=== PATIENT | male | born 1965 | race African-American/Black ===

== ENCOUNTER 2018-08-06 16:16 | Emergency (ER) | payer BC, OTHER ==
--- NOTE | 2018-08-06 17:14 | ER ---
Nurse's Notes [facility] Name: Garrison Wilder Age: 53 yrs Sex: Male : 1965 Arrival Date: 08/06/2018 Time: 16:18 Bed 19 Private MD: Diagnosis: Sciatica, right side;Mononeuropathy, unspecified Presentation: 08/06 16:26 Presenting complaint: Patient states: Pain to right side of body for 1 week. Denies aj numbness. Transition of care: patient was not received from another setting of care. Onset of symptoms was July 31, 2018. Risk Assessment: Do you want to hurt yourself or someone else? Patient reports no desire to harm self or others. Initial Sepsis Screen: Does the patient meet any 2 criteria? No. Patient's initial sepsis screen is negative. Does the patient have a suspected source of infection? No. Patient's initial sepsis screen is negative. Care prior to arrival: None. 16:26 Method Of Arrival: Ambulatory 16:26 Acuity: TRACY 3 aj Triage Assessment: 16:27 General: Appears in no apparent distress. comfortable, Behavior is calm, cooperative, aj appropriate for age. Pain: Complains of pain in right trapezius, right scapular area, right arm and right leg. Neuro: Level of Consciousness is awake, alert, obeys commands, Oriented to person, place, time, situation, Appropriate for age. Respiratory: Airway is patent Respiratory effort is even, unlabored, Respiratory pattern is regular, symmetrical. Derm: Skin is intact, is healthy with good turgor, Skin is pink, warm \T\ dry. normal. Musculoskeletal: Reports pain in right arm and right leg. Historical: - Allergies: 16:27 No Known Allergies; aj - Home Meds: 16:27 None [Active]; aj - PMHx: 16:27 None; aj - PSHx: 16:27 Appendectomy; Cholecystectomy; aj - Immunization history:: Adult Immunizations up to date. - Social history:: Smoking status: Patient/guardian denies using tobacco, Patient uses alcohol, on a daily basis. - Ebola Screening: : Patient negative for fever greater than or equal to 101.5 degrees Fahrenheit, and additional compatible Ebola Virus Disease symptoms Patient denies exposure to infectious person Patient denies travel to an Ebola-affected area in the 21 days before illness onset No symptoms or risks identified at this time. Screenin:33 Abuse screen: Denies threats or abuse. Denies injuries from another. Nutritional bp screening: No deficits noted. Tuberculosis screening: No symptoms or risk factors identified. Fall Risk None identified. Assessment: 16:33 General: SEE TRIAGE NOTE. bp 17:24 Reassessment: PT D/C HOME AMBULATORY WITH FAMILY, DX WITH SCIATICA. bp Vital Signs: 16:27 BP 141 / 91; Pulse 92; Resp 19; Temp 98.8; Pulse Ox 97% on R/A; Weight 115.67 kg; aj Height 5 ft. 10 in. (177.80 cm); 17:25 BP 151 / 89; Pulse 89; Resp 18; Temp 98.8; Pulse Ox 97% ; bp 16:27 Body Mass Index 36.59 (115.67 kg, 177.80 cm) aj ED Course: 16:18 Patient arrived in ED. as 16:27 Triage completed. aj 16:27 Arm band placed on right wrist. Patient placed in an exam room. aj 16:31 Troy León MD is Attending Physician. 16:32 Josue Mayo, NUZHAT is Primary Nurse. bp 16:33 Patient has correct armband on for positive identification. Bed in low position. Call bp light in reach. Side rails up X2. 17:12 Jean-Claude Mathew MD is Referral Physician. gs 17:25 No provider procedures requiring assistance completed. Patient did not have IV access bp during this emergency room visit. Administered Medications: No medications were administered Outcome: 17:13 Discharge ordered by . 17:25 Discharged to home ambulatory, with family. bp 17:25 Condition: stable 17:25 Discharge instructions given to patient, Instructed on discharge instructions, follow up and referral plans. medication usage, Demonstrated understanding of instructions, follow-up care, medications, Prescriptions given X 2. 17:26 Patient left the ED. bp Signatures: Milly Gongora, RN RN Tracy Perry Gregory, MD MD gs Peltier, Brian, NUZHAT RN bp
--- NOTE | 2018-08-06 17:14 | EDPHYS ---
Physician Documentation [facility] Name: Garrison Wilder Age: 53 yrs Sex: Male : 1965 Arrival Date: 08/06/2018 Time: 16:18 Bed 19 Private MD: ED Physician Troy León HPI: 08/06 17:01 This 53 yrs old Black Male presents to ER via Ambulatory with complaints of Pain All gs Over - Right Side. 17:01 The patient presents with pain, that is acute. The complaints affect the right hip. gs Onset: The symptoms/episode began/occurred 1 week(s) ago, intermittent. Modifying factors: The symptoms are alleviated by nothing. the symptoms are aggravated by nothing. Associated signs and symptoms: Pertinent negatives calf tenderness, fever, swelling. Severity of symptoms: At their worst the symptoms were moderate, in the emergency department the symptoms have resolved. The patient has not experienced similar symptoms in the past. Historical: - Allergies: 16:27 No Known Allergies; aj - Home Meds: 16:27 None [Active]; aj - PMHx: 16:27 None; aj - PSHx: 16:27 Appendectomy; Cholecystectomy; aj - Immunization history:: Adult Immunizations up to date. - Social history:: Smoking status: Patient/guardian denies using tobacco, Patient uses alcohol, on a daily basis. - Ebola Screening: : Patient negative for fever greater than or equal to 101.5 degrees Fahrenheit, and additional compatible Ebola Virus Disease symptoms Patient denies exposure to infectious person Patient denies travel to an Ebola-affected area in the 21 days before illness onset No symptoms or risks identified at this time. ROS: 17:01 All other systems are negative. gs Exam: 17:01 Head/Face: Normocephalic, atraumatic. Eyes: Pupils equal round and reactive to light, gs extra-ocular motions intact. Lids and lashes normal. Conjunctiva and sclera are non-icteric and not injected. Cornea within normal limits. Periorbital areas with no swelling, redness, or edema. ENT: Nares patent. No nasal discharge, no septal abnormalities noted. Tympanic membranes are normal and external auditory canals are clear. Oropharynx with no redness, swelling, or masses, exudates, or evidence of obstruction, uvula midline. Mucous membranes moist. Neck: Trachea midline, no thyromegaly or masses palpated, and no cervical lymphadenopathy. Supple, full range of motion without nuchal rigidity, or vertebral point tenderness. No Meningismus. Chest/axilla: Normal chest wall appearance and motion. Nontender with no deformity. No lesions are appreciated. Cardiovascular: Regular rate and rhythm with a normal S1 and S2. No gallops, murmurs, or rubs. Normal PMI, no JVD. No pulse deficits. Respiratory: Lungs have equal breath sounds bilaterally, clear to auscultation and percussion. No rales, rhonchi or wheezes noted. No increased work of breathing, no retractions or nasal flaring. Abdomen/GI: Soft, non-tender, with normal bowel sounds. No distension or tympany. No guarding or rebound. No evidence of tenderness throughout. Back: No spinal tenderness. No costovertebral tenderness. Full range of motion. Skin: Warm, dry with normal turgor. Normal color with no rashes, no lesions, and no evidence of cellulitis. MS/ Extremity: Pulses equal, no cyanosis. Neurovascular intact. Full, normal range of motion. Neuro: Awake and alert, GCS 15, oriented to person, place, time, and situation. Cranial nerves II-XII grossly intact. Motor strength 5/5 in all extremities. Sensory grossly intact. Cerebellar exam normal. Normal gait. 17:01 Constitutional: The patient appears alert, awake. Vital Signs: 16:27 BP 141 / 91; Pulse 92; Resp 19; Temp 98.8; Pulse Ox 97% on R/A; Weight 115.67 kg; aj Height 5 ft. 10 in. (177.80 cm); 17:25 BP 151 / 89; Pulse 89; Resp 18; Temp 98.8; Pulse Ox 97% ; bp 16:27 Body Mass Index 36.59 (115.67 kg, 177.80 cm) aj MDM: 16:49 Patient medically screened. gs 17:01 Differential diagnosis: tendonitis, neuropathic pain, sciatica, also states neck gs sometimes hurts when he gets the pain, pain is intermittent not occurring now. recommend neurology followup. Data reviewed: vital signs, nurses notes. 17:14 Counseling: I had a detailed discussion with the patient and/or guardian regarding: the gs historical points, exam findings, and any diagnostic results supporting the discharge/admit diagnosis, the presence of at least one elevated blood pressure reading (>120/80) during this emergency department visit, the need for outpatient follow up. Special discussion: I have referred the patient to see his PCP for further evaluation of high blood pressure. Administered Medications: No medications were administered Disposition: 08/06/18 17:13 Discharged to Home. Impression: Sciatica, right side, Mononeuropathy, unspecified. - Condition is Stable. - Discharge Instructions: Neuropathic Pain, Sciatica, Managing Your Hypertension. - Prescriptions for Prednisone 20 mg Oral Tablet - take 1 tablet by ORAL route once daily for 5 days; 5 tablet. Tylenol- Codeine #4 300-60 mg Oral Tablet - take 1 tablet by ORAL route every 6 hours As needed; 10 tablet. - Medication Reconciliation Form, Thank You Letter, Antibiotic Education, Prescription Opioid Use, Work release form form. - Follow up: Jean-Claude Mathew MD; When: 2 - 3 days; Reason: Re-evaluation by your physician. Signatures: Milly Gongora RN RN Troy Santana MD MD Josue Mayo RN RN bp Corrections: (The following items were deleted from the chart) 17:26 17:13 08/06/2018 17:13 Discharged to Home. Impression: Sciatica, right side; bp Mononeuropathy, unspecified. Condition is Stable. Forms are Medication Reconciliation Form, Thank You Letter, Antibiotic Education, Prescription Opioid Use. Follow up: Jean-Claude Mathew; When: 2 - 3 days; Reason: Re-evaluation by your physician.
[2018-08-06 17:47] VITALS: TEMP 98.8; O2SAT 97
[2018-08-06 17:49] VITALS: BP 151/89
== END 2018-08-06 17:26 | disposition home or self-care (01) ==
LOC: ER 16:16
DX: G58.9 Mononeuropathy, unspecified (principal)
CPT/HCPCS: 99282

== ENCOUNTER 2021-12-20 09:35 | Inpatient (IN) | payer BC ==
--- NOTE | 2021-12-21 12:30 | R.PREADM ---
PRE-ADMISSION SCREENING FORM SCREENING DATE AND TIME 12/20/2021 09:57 (CDT) ANTICIPATED REHAB ADMISSION DATE 12/22/2021 REFERRAL ORIGIN/HOSPITAL [facility] REFERRAL DATE AND TIME 12/20/2021 09:57 (CDT) ACUTE ADMIT DATE 12/08/2021 HOSPITALIZED IN LAST 60 DAYS? Yes Previous Rehabilitation(s): No. REFERRING PHYSICIAN Edie Stuart REHAB FACILITY [facility] CLINICAL LIAISON Cyndy Villafuerte PHYSICIAN REVIEWER Dr. Jean-Claude Mathew M.D. MR# [id number] NAME ROMA MARTINEZ ADDRESS [address] [facility] [id number] DATE OF 1965 AGE 56 SSN# [id number] GENDER male MARITAL STATUS RACE Y. Patient declines to respond ETHNICITY Y. Patient declines to respond A1110. LANGUAGE WHAT IS YOUR PREFERRED LANGUAGE? Congolese DO NEED OR WANT AN PRODUCTION ASSEMBLER TO COMMUNICATE WITH A DOCTOR OR HEALTHCARE STAFF? No ADMIT FROM 02 - [facility] PRE-HOSPITAL LIVING SETTING 01 - Home (private home/apt. board/care, assisted living, usp, transitional living) HOME TYPE AND DETAILS Type of home: single family house # of steps within the residence: 0 # of steps to enter the residence: 0 # of levels in the residence: 1 PRE-HOSPITAL LIVING WITH Family/Relatives FAMILY SUPPORT Yes PHONE PRIMARY FAMILY CONTACT ON ADM.? no IS PRIMARY FAMILY CONTACT AUTH. REP.? no PHONE 1ST CONTACT ON ADM. no IS 1ST CONTACT AUTH. REP.? no PHONE 2ND CONTACT ON ADM.? 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 1ST PAYOR INJURY/ILLNESS DUE TO ACCIDENT? No ANOTHER CONSTITUTION PARTY RESPONSIBLE? 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 ONSET DATE 12/10/2021 REHAB IMPAIRMENT CATEGORY (SORAYA): 10 Amputation, lower extremity (Amp/LE) MEETS 60% rule AFFECTED EXTREMITIES: LLE PRIMARY DIAGNOSIS-RELATED SURGERIES: Emergency Amputation of Limb(Unilateral Lower Limb Below the Knee (BK)) - performed by Mary Stuart on 12/10/2021 COMORBID REHAB/ACUTE DIAGNOSES: - Tier 3 Type 2 diabetes mellitus with diabetic neuropathy, unspecified (E11.40) - Non-Tiered Infection of amputation stump, unspecified extremity (T87.40) Cellulitis of right lower limb (L03.115) Tremor, unspecified (R25.1) INTERVENTIONS: - BKA Administer antibiotics as indicated Assist with ambulation and transfers Assist with specified ROM exercises for both the affected and unaffected limbs Maintain patency and routinely empty drainage device and monitor wound dressings Monitor pt labs Monitor pt v/s and for s/s of infection Perform periodic neurovascular assessments Aggressive PT/OT - Sepsis Administer antibiotics as indicated Assess/ Monitor for increased s/s infection Assess/ Monitor pt v/s regularly Monitor pt labs - Type 2 Diabetes Assess LE for temperature, pulses, color, and sensation. Assess for signs of hyperglycemia. Monitor blood glucose and effectiveness of medications/Insulin Monitor pt BP Weight daily. Promote proper diet - Pain Anticipate the need for pain medication for optimal pain managment Assess/Monitor pt pain and treat with prescribed pain medications Educate pt on relaxation techniques and deep breathing RISK FOR COMPLICATIONS: - DVT Active and Passive ROM exercises Administer medications per MD order Assist patient with frequent position changes Elevate BLE - Skin Breakdown Encourage ambulation as tolerated Repositioning q 2 hours Use of pillows or foam wedges while in bed - Pain Anticipate the need for pain medication for optimal pain managment Assess pt for pain and Administer prescribed pain medication as needed Educate patient on relaxation and deep breathing techniques - Falls Assess for medication side effects Maintain call light within patient reach for easy access to nursing assistance Provide assistance getting out of bed and with ambulation Provide assistive devices - Infection Administer antibiotics as indicated Provide regular wound care Assess/Monitor for s/s of infection and notify MD Monitor pt labs SUMMARY OF ACUTE HOSPITALIZATION: On 12/10/2021 he was admitted to [facility] and underwent emergency surgery for Z89.51 Acquired absence of left leg below knee (Amputation of Limb(Unilateral Lower Limb Below the Knee (BK))) by Mary Stuart. Pt. is a 56 yo AAM. Pre-morbidly, Pt. was independent/mod-I in Locomotion and Self-Care; and he had good Safety Awareness , Balance, Transfers Control, and Endurance. Currently, he has deficits of Locomotion, Balance, and Self-Care. Pt. is now referred to [facility] for acute in-patient rehabilitation in order to maximize patient's functional independence in activities of daily living, strength, ROM, and mobi lity. Patient has realistic goal of being discharged at assistance level 6-Jacobo to reside at Home with Fam linda/Relatives. Pt is a 56 yo male with PMH of T2DM and diverticulitis who present to hospital with sepsis of the R f oot on 12/08/21 and underwent R BKA on 12/10/21 and a R BKA revision on 12/14/21. The patient developed a BUE tremor 5 days after the amputation and as progressively gotten worst. Pt began experiencing neur opathy in his R left and was prescribed gabapentin which has decreased his pain at this time. Per OT report pt has decreased independence with ADLs and continues to struggle with using stairs.PT indicat es that pt has decline in gait and has balance deficit. Decreased stair/step negotiation, strength an d endurance also noted in PT report. Prior to onset pt was independent in ambulation and ADLs. Due to the decline in the patients condition he is not currently safe to remain in his current living arrangement due to reductions in balance, strength, endurance, and an inability to independently perform the necessary activities of daily living and self-care required. Pt is at risk for skin breakdown, DVT, pain, falls, stroke and infections. Our goal is for the patient to become stronger in order for him to safely return home and live independently. Patient would most directly benefit from aggressive 3 hours of daily therapy split between physical therapy and occupational therapy as well as speech therapy if warranted in the acute inpatient rehab setting.He is medically stable with relatively stable labs. He will require 24 hour nursing, doctor supervision and oversight while receiving condition and PHM. The patient is reasonably expected to participate in 3 hours of therapy a day/15 hours per week and receive care with an intensive interdisciplinary approach. COVID-19 screening performed; Patient denies new onset of fever, cough, difficulty breathing, sore throat, body aches and non-allergy nasal congestion in the past 24 hours. Patient denies travel outside of [place] in the past 14 days. Patient denies any contact with someone who has a confirmed diagnosis of or is under investigation for COVID-19 in the past 14 days. CONSULT: Consult Certified Prosthetic for prosthesis construction PAST MEDICAL AND SURGICAL HISTORY: - MedicalCardiovascular Diabetes Type II - Musculoskeletal Amputation - Surgical History Cholecystectomy Appendectomy - Psychological Alcohol MEDICATION ALLERGIES: No Known Drug Allergies (NKDA) ENVIRONMENTAL ALLERGIES: - Substance Allergies None Known - Other Allergies None Known CODE STATUS: Full code WEIGHT/HEIGHT/BMI: WEIGHT unknown lbs HEIGHT unknown inches BMI N/A SKIN DIAGRAM: Amputation on Right knee; extent - small; stage - NS(Not Stageable). Treatment - Per Physician's Orde rs. REVIEW OF SYSTEMS: - Gen Alert and awake Lying in bed No apparent distress Oriented to: person, time, and place - CVS RRR - OTHER Reviewed by Dr. Jean-Claude Mathew [id number]. PRIOR FUNCTIONING: EVERYDAY ACTIVITIES. A. SELF CARE Independent - Patient completed the activities by him/herself, with or without an assistive device, w ith no assistance from a helper. CODE: 3 B. INDOOR MOBILITY (AMBULATION) Independent - Patient completed the activities by him/herself, with or without an assistive device, w ith no assistance from a helper. CODE: 3 C. STAIRS Independent - Patient completed the activities by him/herself, with or without an assistive device, w ith no assistance from a helper. CODE: 3 D. FUNCTIONAL COGNITION Independent - Patient completed the activities by him/herself, with or without an assistive device, w ith no assistance from a helper. CODE: 3 [id number]. PRIOR DEVICE USE. Z. None of the above ACTIVE DIAGNOSES I0900. Peripheral Vascular Disease (PVD) or Peripheral Arterial Disease (PAD)I2900. Diabetes Mellitus (DM) (e.g., diabetic retinopathy, nephropathy, and neuropathy)I7900. None of the above (I0900 or I29 00)K0520. NUTRITIONAL APPROACHES.: Z. None of the above VITAL SIGNS Temperature: 97.3 F SBP/DBP: 161/95 Pulse: 88 Resp: 16 Vital signs stable, afebrile MEDICATIONS/TREATMENT: Other- See attached MAR (Medication Administration Record). CURRENT SPHINCTER CONTROL: Pre-hospital bladder status: unspecified # of bladder accidents in the last 7 days prior to screenin Pre-hospital bowel status: unspecified # of bowel accidents in the last 7 days prior to screenin Last Bowel Movement Date: 12/20/2021 DETAILED CURRENT FUNCTIONAL STATUS: - Bladder accident frequency: 7-Ind - No accidents in the past 7 days - Bowel accident frequency: 7-Ind - No accidents in the past 7 days - Walking score based on distance walked: 0(N/A) - Wheelchair score based on distance traveled: 0(N/A) QI SCORES: - Self-Care A. Eating 06-Independent B. Oral hygiene 06-Independent C. Toileting hygiene 06-Independent E. Shower/bathe self 03-Partial/moderate assistance F. Upper body dressing 06-Independent G. Lower body dressing 06-Independent H. Putting on/taking off footwear 06-Independent - Mobility A. Roll left and right 06-Independent B. Sit to lying 06-Independent C. Lying to sitting on side of bed 06-Independent D. Sit to stand 04-Supervision or touching assistance E. Chair/lmk-iy-xicte transfer 04-Supervision or touching assistance F. Toilet transfer 04-Supervision or touching assistance G. Car transfer 88-Not attempted due to medical condition or safety concerns I. Walk 10 feet 03-Partial/moderate assistance J. Walk 50 feet with two turns 03-Partial/moderate assistance K. Walk 150 feet 88-Not attempted due to medical condition or safety concerns L. Walking 10 feet on uneven surfaces 88-Not attempted due to medical condition or safety concerns M. 1 step (curb) 88-Not attempted due to medical condition or safety concerns N. 4 steps 88-Not attempted due to medical condition or safety concerns O. 12 steps 88-Not attempted due to medical condition or safety concerns P. Picking up object 88-Not attempted due to medical condition or safety concerns R. Wheel 50 feet with two turns 09-Not applicable S. Wheel 150 feet 09-Not applicable - Bladder and Bowel Bladder continence 0-Always continent Bowel continence 0-Always continent HISTORY OF FALLS. HAS THE PATIENT HAD TWO OR MORE FALLS IN THE PAST YEAR OR ANY FALL WITH INJURY IN T HE PAST YEAR?: No PRIOR SURGERY. DID THE PATIENT HAVE MAJOR SURGERY DURING THE 100 DAYS PRIOR TO ADMISSION?: Yes [id number]. SPECIAL TREATMENTS, PROCEDURES, AND PROGRAMS H1. IV MEDICATIONS: H3. Antibiotics Z1. NONE OF THE ABOVE: No THERAPY NOTES FROM ACUTE CARE: Attached. SUBSTANCE USE: Alcohol use (amount 6 cans of beer per week) SAFETY COCERNS/PRECAUTIONS: Balance WEIGHT BEARING STATUS: NWB SKIN BREAKDOWN RISK: Skin Breakdown Risk DVT RISK: DVT Risk PATIENT NEEDS ACTIVE AND ONGOING THERAPEUTIC INTERVENTION OF MULTIPLE THERAPY DISCIPLINES, INCLUDING: - Orthotics/Prosthetics Prosthetic Evaluation. - Dietary and Nutrition Adequate Nutrition. Nutritional Education. Nutritional Supplements. - Occupational Therapy Cognitive Retraining. Patient needs Occupational Therapy for a daily minimum of 1.5 hours at least 5 out of 7 days, to improve Activities of Daily Living, including: Eating, Grooming, Bathing, Dressing, Toileting, Toilet Transfers, Community Reintegration, Higher functional activities, Adaptive Equipme nt, Splinting, Household Tasks, and Other activities as determined. Visual Perceptual Training. - Physical Therapy Patient needs Physical Therapy for a daily minimum of 1.5 hours at least 5 out of 7 days, to improve: Mobility, Strengthening, Transfers, Stretching, ROM, Endurance, Ability to manage stairs, Gait, and Balance. PATIENT NEEDS CLOSE MEDICAL SUPERVISION BY A REHABILITATION PHYSICIAN FOR: Coordination of Treatment Team Diabetes Management Medical and Co-Morbidity Management Post-Op Complications Wound Care PATIENT REQUIRES 24X7 REHAB NURSING FOR MEDICAL AND FUNCTIONAL MGT. OF THE FOLLOWING DEFICITS: Disease Management Medication Management Patient requires 24x7 Rehabilitation Nursing for: Pain Issues, Identifying and preventing risk factor s, Monitoring and reporting current medical conditions, Assisting with ambulation and transfer, Esmer ting with all ADL-s, Teaching patients about disease process and medications, Family teaching, Provid ing safe environment, Bowel and Bladder Issues, Skin Integrity, and Medication Management Patient/Family Education Providing Safe Environment Skin Integrity PATIENT REQUIRES INTENSIVE, COORDINATED INTERDISCIPLINARY APPROACH TO REHAB: Arranging Home Equipment/Services Discharge Planning Family Intervention/Training Patient needs Dietary and Nutrition Services for: Adequate Nutrition, Nutritional Supplements, and Nu tritional Education Patient needs Drilling Machine Operator and/or Case Management for: Discharge Planning, Arranging Home Equipmen t or Services, and Family Interventions Drilling Machine Operator/Case Management PATIENT REHAB POTENTIAL: Izabel MARTINEZ is able and expected to receive 3 hours of individualized therapy daily on at least 5 of jennifer ry 7 days Izabel POLLARDs prognosis for significant practical improvement within a reasonable period of time appears Good Expected level of measurable improvement will be of a practical value to Izabel MARTINEZ's functional capaci ty or adaptations to impairments Has a viable Discharge Plan Medically appropriate; condition is sufficiently stable to participate in intensive rehab program DISCHARGE PLAN: - Estimated Length of Stay (days) 11. - Consensus on plan Discharge plan has been discussed with primary caregiver. Patient/Family is in agreement with the crodell n. Primary caregiver is in agreement with the plan. - Patient/Family Goals Return home independently. - Planned Living Setting Upon Discharge Home, to live with Family/Relatives. Transitional Living. RECOMMENDED CARE LEVEL: IRF RECOMMENDATION DETAILS: Recommended Admission to Comprehensive Rehabilitation Program to Increase Functional [place] SCREENER'S COMPLETENESS CONFIRMATION: - Screening Confirmation The patient data collection on this preadmission screening form is finished PHYSICIANS REVIEW AND ADMISSION DETERMINATION Admit - Based on my review of the Pre-Admission Screening results, in my medical judgment and experie nce, I concur with the findings and recommend admission to [facility], as this patient requires an IRF level of care. SIGNATURE PANEL: Clinical Liaison - [electronically] signed by Cyndy Villafuerte on 12/21/2021 at 12:11 (CDT) Physician Reviewer - [electronically] signed by Dr. Jean-Claude Mathew M.D. on 12/21/2021 at 12:30 (CDT )
[2021-12-21 21:09] VITALS: BMI 37.5
--- OUTSIDE RECORDS SUMMARY | 2021-12-21 21:14 | XMS REPORT | Continuity of Care Document ---
:1965 Author Organization [facility] t Address [address] [place] [address] Care Team Providers Name Role Phone TRINITY LOYOLA JR Primary Care Physician Unavailable Kei WHITLEY, Claudia Soler Attending Clinician Raheem Mercer MD Attending Clinician EDIE STUART Attending Clinician Unavailable Diamond Friedman MD Attending Clinician DIAMOND FRIEDMAN Attending Clinician Unavailable Pavan Grimaldo Attending Clinician EDIE STUART Admitting Clinician Unavailable Payers Payer Name Policy Type Policy Number Effective Date Expiration Date S ource Problems Condition Condition Condition Status Onset Resolution Last Treating Co mments Source Name Details Category Date Date Treatment Clinician Date Right foot Right foot Disease Active Overview : Univers infection infection 12-08 Formattin i ty of 00:00: g of this [place] 00 note Medical might be Branch different from the original. Added automatic ally from request for surgery [id number] Cellulitis Cellulitis Disease Active Overview : Univers of right of right 12-08 Formattin ity of lower lower 00:00: g of this [place] extremity extremity 00 note Medi missy might be Branch different from the original. Added automatic ally from request for surgery [id number] Obesity Obesity Disease Active Univers (BMI (BMI 9-08 ity of 30-39.9) 30-39.9) 00:00: [address] No known No known Disease Unive rs active active ity of problems problems [facility] Cervical Cervical Problem Active 2020-01-04 Memoria radiculopa radiculopa 21:55:50 l thy thy [place] (disorder) (disorder) Active Problem 01/04/2020 [facility] Morbid Morbid Problem Active 2020-01-04 Devante dino obesity obesity 21:55:50 l (disorder) (disorder) He rmann Active Problem 01/04/2020 [facility] Paresthesi Paresthes Problem Active 2020-01-04 Memoria a ia 21:55:50 l (finding) (finding) Herm nicole Active Problem 01/04/2020 [facility] 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 21:55:50 l s s [place] (disorder) (disorder) Active Problem 01/04/2020 [facility] Lumbar Lumbar Problem Active 2020-01-04 Devante dino radiculopa radiculopa 21:55:50 l thy thy [place] (disorder) (disorder) Active Problem 01/04/2020 [facility] Allergies, Adverse Reactions, Alerts Allergy Allergy Status Severity Reaction(s) Onset Inactive Treating Comm ents Source Name Type Date Date Clinician NO KNOWN Drug Active Univers ALLERGIE Class ity of S [facility] Social History Social Habit Start Date Stop Date Quantity Comments Source History of Cigarette Smoker Universi ty of tobacco use [facility] Alcohol intake 2021-12-15 2021-12-15 .86 /d [facility] 00:00:00 00:00:00 [facility] Tobacco use and 2021-12-08 2021-12-08 Smokeless tobacco Un iversity of exposure 00:00:00 00:00:00 non-user [facility] Education 2021-12-08 2021-12-[address] [place] [address] 00:00:00 00:00:00 [facility] Exposure to 2021-11-27 2021-12-07 Not sure [facility] SARS-CoV-2 00:00:00 21:45:00 [facility] (event) Branch Social History 2018-12-18 2018-12-18 [facility] 14:48:38 14:48:38 Sex Ass[birth year] At [birth year] Universit y of 00:00:00 00:00:00 [facility] Smoking Status Start Date Stop Date Source Ex-smoker 2021-12-08 00:00:00 2021-12-08 00:00:00 [facility] Never smoked tobacco [facility] Medications Ordered Filled Start Stop Current Ordering Indication Dosage Frequency Signature Comments Components Source Medication Medication Date Date Medication? Clinician (SIG) Name Name ketorolac Yes 15mg 15 mg, Univer s (TORADOL) 12-14 Intramuscu ity of injection 23:03: Ct cedillo 15 mg 38 Q8HPRN, 4 Medical doses, Branch Starting on Sun12/14/21 at 1803, Until Discontinu ed, Routine, breakthrou gh pain Graham's Yes 15mL 15 mL, Univers magic 9-13 Oral, ity of mouthwash 03:55: Q6HPRN, Ct (([facility] 06 Starting Medical COMPOUND)) on Sun Branch suspension 12/12/21 at 15 mL 2255, Until Discontinu ed, Routine, Mouth sore ampicillin 2021- Yes 2000mg 2,000 mg, Univers (POLYCILLIN 12-12 IV ity of -N) 2,000 21:15: 20:59 Piggyback, [place] mg in NaCl 00 :00 Q4H, 84 Medica l 0.9% (NS) doses, Branch 100 mL First dose MINI-BAG on Sun12/12/21 at 1615, Last dose on Sun12/26/21 at 1200, Administer over 30 Minutes, 100 mL
Reas on for Anti-Infec tive: Documented Infection& lt;br>Docu mented Infection Site: Skin / Soft Tissue
Duration of Therapy: 14 days ampicillin 2021- Yes 2000mg 2,000 mg, Univers (POLYCILLIN 12-12 IV ity of -N) 2,000 21:15: 20:59 Piggyback, [place] mg in NaCl 00 :00 Q4H, 84 Medica l 0.9% (NS) doses, Branch 100 mL First dose MINI-BAG on 12/12/22 at 1615, Last dose on [facility] 12/26/21 at 1200, Administer over 30 Minutes, 100 mL
Reas on for Anti-Infec tive: Documented Infection& lt;br>Docu mented Infection Site: Skin / Soft Tissue
Duration of Therapy: 14 days gabapentin 2021-0 Yes 300mg 300 mg, Uni vers (NEURONTIN) 9-12 Oral, Q8H, it y of capsule 300 19:00: First dose [place] mg 00 on [facility] 12/12/21 at [place] 1400, Until Discontinu ed, Routine gabapentin 2021-0 Yes 300mg 300 mg, Uni vers (NEURONTIN) 9-12 Oral, Q8H, it y of capsule 300 19:00: First dose [place] mg 00 on [facility] 12/12/21 at [place] 1400, Until Discontinu ed, Routine morpHINE (2 2021-0 Yes 2mg 2 mg, Slow Univers mg/mL) 9-11 IV Push, ity of injection 2 02:31: Q6HPRN, [place] mg 42 Starting Medical on [facility] 12/10/21 at 2131, Until Discontinu ed, Routine, Pain (scale 7-10) morpHINE (2 2021-0 Yes 2mg 2 mg, Slow Univers mg/mL) 9-11 IV Push, ity of injection 2 02:31: Q6HPRN, [place] mg 42 Starting Medical on [facility] 12/10/21 at 2131, Until Discontinu ed, Routine, Pain (scale 7-10) HYDROcodone 2021-0 Yes 1{tbl} 1 tablet, Univers -acetaminop 9-11 Oral, ity of hen (NORCO 02:31: Q6HPRN, [place] 5) 5-325 mg 18 Starting Medi missy tablet 1 on [facility] tablet 12/10/21 at 2131, Until Discontinu ed, Routine, Pain (scale 4-6) HYDROcodone 2021-0 Yes 1{tbl} 1 tablet, Univers -acetaminop 9-11 Oral, ity of hen (NORCO 02:31: Q6HPRN, [place] 5) 5-325 mg 18 Starting Medi missy tablet 1 on [facility] tablet 12/10/21 at 2131, Until Discontinu ed, Routine, Pain (scale 4-6) sodium 2022-0 202- No PRN, Univers hypochlorit 12-10-10 Starting ity of e 0.025% 19:29: 19:52 on Sat [place] ([facility]) 00 :34 12/10/21 at [facility] solution 1429, Branch Until 12/10/21 at 1452, Routine, Intra-op metFORMIN 2022-0 Yes 500mg 500 mg, Univ ers (GLUCOPHAGE 9- Oral, ity of ) tablet 16:00: DAILY, [place] 500 mg 00 First dose Medical on [place] Branch 12/09/21 at 1100, Until Discontinu ed, Routine metFORMIN 2022-0 Yes 500mg 500 mg, Univ ers (GLUCOPHAGE - Oral, ity of ) tablet 16:00: DAILY, [place] 500 mg 00 First dose Medical on [place] [facility] 12/09/21 at 1100, Until Discontinu ed, Routine metFORMIN 2022-0 Yes 500mg 500 mg, Univ ers (GLUCOPHAGE 12-09 Oral, ity of ) tablet 16:00: DAILY, [place] 500 mg 00 First dose Medical on [place] Branch 12/09/21 at 1100, Until Discontinu ed, Routine KCL 2022-0 Yes 40meq 40 mEq, Univers (KLOR-CON 12-09 Oral, ity of M20) tablet 14:00: DAILY, [place] 40 mEq 00 First dose Medical on [place] Branch 12/09/21 at 0900, Until Discontinu ed, Routine sodium 2022-0 Yes Topical, Univers hypochlorit 12-09 DAILY, ity of e 0.025% 14:00: First dose [place] ([facility]) 00 on Sun Medical solution 12/09/21 at Branch 0900, Until Discontinu ed, Routine KCL 2022-0 Yes 40meq 40 mEq, Univers (KLOR-CON - Oral, ity of M20) tablet 14:00: DAILY, [place] 40 mEq 00 First dose Medical on [place] Branch 12/09/21 at 0900, Until Discontinu ed, Routine KCL 2022-0 Yes 40meq 40 mEq, Univers (KLOR-CON - Oral, ity of M20) tablet 14:00: DAILY, [place] 40 mEq 00 First dose Medical on [place] Branch 12/09/21 at 0900, Until Discontinu ed, Routine sodium 2022-0 Yes Topical, Univers hypochlorit 9- DAILY, ity of e 0.025% 14:00: First dose [place] ([facility]) 00 on Sun Medical solution 12/09/21 at Branch 0900, Until Discontinu ed, Routine heparin 2022-0 Yes 5000U 5,000 Univers (porcine) 9- Units, ity of injection 01:00: [place] 5,000 Units 00 us, Q12H, Med ical First dose Branch on [facility] 12/08/21 at 2000, Until Discontinu ed, Routine methocarbam 2022-0 Yes 500mg 500 mg, Un lenore oL 9-09 Oral, QID, ity of (ROBAXIN) 01:00: First dose [place] tablet 500 00 on [facility] Medical mg 12/08/21 at Branch 2000, Until Discontinu ed, Routine heparin 2022-0 Yes 5000U 5,000 Univers (porcine) 12-09 Units, ity of injection 01:00: [place] 5,000 Units 00 us, Q12H, Med ical First dose Branch on [facility] 12/08/21 at 2000, Until Discontinu ed, Routine methocarbam 2022-0 Yes 500mg 500 mg, Un lenore oL 9- Oral, QID, ity of (ROBAXIN) 01:00: First dose [place] tablet 500 00 on [facility] Medical mg 12/08/21 at Branch 2000, Until Discontinu ed, Routine heparin 2022-0 Yes 5000U 5,000 Univers (porcine) - Units, ity of injection 01:00: [place] 5,000 Units 00 us, Q12H, Med ical First dose Branch on [facility] 12/08/21 at 1999, Until Discontinu ed, Routine gabapentin 2022-0 Yes 100mg 100 mg, Uni vers (NEURONTIN) 12-09 Oral, TID, it y of capsule 100 01:00: First dose [place] mg 00 on [facility] Medical 12/08/21 at Branch 1999, Until Discontinu ed, Routine methocarbam 2022-0 Yes 500mg 500 mg, Un lenore oL 9-09 Oral, QID, ity of (ROBAXIN) 01:00: First dose [place] tablet 500 00 on [facility] Medical mg 12/08/21 at Branch 2000, Until Discontinu ed, Routine ceFEPIme 2-0 2021- Yes 1000mg 1,000 mg, U nivers (MAXIPIME) 12-09-15 IV ity of 1,000 mg in 00:00: 23:59 Piggyback, [place] NaCl 0.9% 00 :00 Q8H ABX, Medica l (NS) 50 mL 21 doses, Bran ch MINI-BAG First dose on [facility] 12/08/21 at 1900, Last dose on [facility] 12/15/21 at 1100, Administer over 4 Hours, 50 mL
Reas on for Anti-Infec tive: Documented Infection< br>Documen jossue Infection Site: Skin / Soft Tissue
Duration of Therapy: 7 days acetaminoph 2022-0 Yes 650mg 650 mg, Un lenore en 9-08 Oral, Q6H, ity of (TYLENOL) 23:00: First dose [place] tablet 650 00 on [facility] Medical 12/08/21 at Branch 1800, Until Discontinu ed, Routine acetaminoph 2-0 Yes 650mg 650 mg, Un lenore en 9-08 Oral, Q6H, ity of (TYLENOL) 23:00: First dose [place] tablet 650 00 on [facility] Medical 12/08/21 at Branch 1800, Until Discontinu ed, Routine acetaminoph 2022-0 Yes 650mg 650 mg, Un lenore en 9-08 Oral, Q6H, ity of (TYLENOL) 23:00: First dose [place] tablet 650 00 on [facility] Medical 12/08/21 at Branch 1800, Until Discontinu ed, Routine ibuprofen 2022-0 Yes 400mg 400 mg, Univ ers (IBU) 9-08 Oral, TID ity of tablet 400 22:00: MEALS, [place] mg 00 First dose Medical on [facility] 12/08/21 at 1700, Until Discontinu ed, Routine ibuprofen 2022-0 Yes 400mg 400 mg, Univ ers (IBU) 9-08 Oral, TID ity of tablet 400 22:00: MEALS, [place] mg 00 First dose Medical on [facility] 12/08/21 at 1700, Until Discontinu ed, Routine ibuprofen 2022-0 Yes 400mg 400 mg, Univ ers (IBU) 9-08 Oral, TID ity of tablet 400 22:00: MEALS, [place] mg 00 First dose Medical on [facility] Branch 12/08/21 at 1700, Until Discontinu ed, Routine ondansetron 2021-0 Yes 4mg 4 mg, Slow Univers (ZOFRAN 12-08 IV Push, ity of (PF)) 21:47: Q6HPRN, [place] injection 4 43 Starting Medi missy mg on [facility] Branch 12/08/21 at 1647, Until Discontinu ed, Routine, Nausea and Vomiting (N/V) ondansetron 2-0 Yes 4mg 4 mg, Slow Univers (ZOFRAN 12-08 IV Push, ity of (PF)) 21:47: Q6HPRN, [place] injection 4 43 Starting Medi missy mg on [facility] Branch 12/08/21 at 1647, Until Discontinu ed, Routine, Nausea and Vomiting (N/V) HYDROcodone 2021-0 Yes 1{tbl} 1 tablet, Univers -acetaminop 12-08 Oral, ity of hen (NORCO 21:47: Q6HPRN, [place] 5) 5-325 mg 43 Starting Medi missy tablet 1 on [facility] tablet 12/08/21 at 1647, Until Discontinu ed, Routine, Pain (scale 7-10) traMADoL 2021-0 Yes 50mg 50 mg, Univers (ULTRAM) 12-08 Oral, ity of tablet 50 21:47: Q6HPRN, [place] mg 43 Starting Medical on [facility] Branch 12/08/21 at 1647, Until Discontinu ed, Routine, Pain (scale 4-6) ondansetron 2-0 Yes 4mg 4 mg, Slow Univers (ZOFRAN 12-08 IV Push, ity of (PF)) 21:47: Q6HPRN, [place] injection 4 43 Starting Medi missy mg on [facility] Branch 12/08/21 at 1647, Until Discontinu ed, Routine, Nausea and Vomiting (N/V) sodium 2022-0 2022- No PRN, Univers hypochlorit 12-08 09-08 Starting ity of e 0.25% 20:14: 20:56 on [facility] ([facility] 00 :39 12/08/21 at Medica l SOLUTION) 1514, Branch solution Until [facility] 12/08/21 at 1556, Routine, Intra-op vancomycin 2021- Yes 15mg/kg 1,500 mg Univers (VANCOCIN) 12-08 (rounded ity of 1,500 mg in 17:00: 04:59 from 1,824 [place] NaCl 0.9% 00 :00 mg = 15 Medical (NS) 500 mL mg/kg Branch VIAL-MATE ?121.6 IV kg), IV piggyback Piggyback, Q12H ABX, 7 doses, First dose on [place] 12/08/21 at 1200, Last dose on [place] 12/11/21 at 1200, Administer over 90 Minutes, 500 mL
Reas on for Anti-Infec tive: Documented Infection< br>Documen jossue Infection Site: Skin / Soft Tissue< br>Duratio n of Therapy: 7 days No known No No known Unive rs medications 12-08 medication it y of 14:40: s [address] No known No No known Unive rs medications 12-08 medication it y of 14:40: s [address] No known 0 No No known Unive rs medications 12-08 medication it y of 14:40: s [address] NaCl 0.9% Yes 1000mL at 999 Univ ers (NS) IV 9-08 mL/hr, ity of infusion 13:00: Intravenou [place] 1,000 mL 00 s, Medical CONTINUOUS Branch , Starting on [place] 12/08/21 at 0800, Until Discontinu ed, Routine acetaminoph 2021- No 1000mg 1,000 mg, Univers en 12-08 Oral, ity of (TYLENOL) 11:44: 11:46 ONCE, 1 [place] tablet 00 :00 dose, On Medical 1,000 mg [facility] 12/08/21 Branc h at 0645, Routine acetaminoph No 1000mg 1,000 mg, Univers en 12-08 Oral, ity of (TYLENOL) 04:15: 03:16 ONCE, 1 [place] tablet 00 :00 dose, On Medical 1,000 mg [facility] 12/07/21 Branc h at 2315, Routine vancomycin 2021- No 1250mg 1,250 mg, Univers 1,250 mg in 12-08 IV ity of NaCl 0.9% 04:15: 05:45 Piggyback, [place] (NS) 250 mL 00 :00 ONCE, 1 Medic al VIAL-MATE dose, On Branch IV Sun12/07/21 piggyback at 2315, Administer over 90 Minutes, 250 mL
Reas on for Anti-Infec tive: Documented Infection< br>Documen jossue Infection Site: Skin / Soft Tissue
Duration of Therapy: Other (see Comments) piperacilli 2021- No 3.375g 3.375 g, Univers n-tazobacta 12-08 IV ity of m (ZOSYN) 03:15: 04:09 Piggyback, [place] 3.375 g in 00 :00 ONCE, 1 Medica l NaCl 0.9% dose, On Branch (NS) 50 mL Sun12/07/21 MINI-BAG at 2215, Administer over 30 Minutes, 50 mL
R brian for Anti-Infec tive: Documented Infection< br>Documen jossue Infection Site: Skin / Soft Tissue
Duration of Therapy: Other (see Comments) No known No No known Unive rs medications 12-07 medication it y of 22:01: s [address] gabapentin Yes 300 mg = 1 M emoria 300 MG Oral 8-20 cap, PO, l Capsule 21:31: Bedtime, # Herm nicole 00 30 cap, 3 Refill(s), Pharmacy: [facility] #[id number] baclofen 10 Yes 10 mg = 1 M emoria mg oral 7-11 tab, PO, l tablet 20:21: Bedtime, # Barbara nn 00 30 tab, 3 Refill(s), Pharmacy: [facility] [id number] Immunizations Ordered Filled Immunization Date Status Comments [facility] e Immunization Name Name Td 2021-12-07 Completed University 00:00:00 [facility] Td 2021-12-07 Completed University 00:00:00 [facility] Td 2021-12-07 Completed University 00:00:00 [facility] Td 2021-12-07 Completed University of 00:00:00 [facility] Vital Signs Vital Name Observation Time Observation Value Comments Source Systolic blood 2021-12-14 12:44:00 130 mm[Hg] Univer sity of pressure [place] [facility] Diastolic blood 2021-12-14 12:44:00 76 mm[Hg] Unive rsity of pressure [place] [facility] Heart rate 2021-12-14 12:44:00 117 /min Universi ty of [place] [facility] [place] Body temperature 2021-12-14 12:44:00 36.89 Arabella Univ ersity of [place] [facility] Oxygen saturation in 2021-12-14 12:44:00 94 /min University of Arterial blood by [place] Extole missy Pulse oximetry Branch Respiratory rate 2021-12-14 09:44:00 18 /min Univ ersity of [place] [facility] Body height 2021-12-14 03:14:00 175.3 cm Universi ty of [place] [facility] [place] Body weight 2021-12-14 03:14:00 121.564 kg [facility]i ty [facility] [place] [facility] BMI 2021-12-14 03:14:00 39.58 kg/m2 Universi ty of [place] [facility] Systolic blood 2021-12-10 19:59:00 133 mm[Hg] Univer sity of pressure [place] [facility] Diastolic blood 2021-12-10 19:59:00 78 mm[Hg] Unive rsity of pressure [place] [facility] Heart rate 2021-12-10 19:59:00 99 /min Universi ty of [place] [facility] Respiratory rate 2021-12-10 19:59:00 27 /min Univ ersity of [place] [facility] Oxygen saturation in 2021-12-10 19:59:00 98 /min University of Arterial blood by [place] Extole missy Pulse oximetry Branch Body temperature 2021-12-10 19:47:00 36.28 Arabella Univ ersity of [place] [facility] Body height 2021-12-09 01:21:00 175.3 cm Universi ty of [place] [facility] Body weight 2021-12-09 01:21:00 121.564 kg [facility]i [facility] [place] [facility] BMI 2021-12-09 01:21:00 39.58 kg/m2 [facility]i [facility] [place] [facility] Systolic blood 2021-12-08 20:50:00 151 mm[Hg] Univer sity of pressure [place] [facility] Diastolic blood 2021-12-08 20:50:00 97 mm[Hg] Unive rsity of pressure [place] [facility] Respiratory rate 2021-12-08 20:50:00 25 /min Univ ersity of [place] [facility] Oxygen saturation in 2021-12-08 20:45:00 98 /min University of Arterial blood by [facility] Pulse oximetry Branch Body temperature 2021-12-08 20:30:00 36.11 Arabella Univ ersity of [place] [facility] Heart rate 2021-12-08 17:00:00 90 /min Universi ty [facility] [place] [facility] Body weight 2021-12-08 14:36:00 121.564 kg [facility]i ty [facility] [place] [facility] BMI 2021-12-08 14:36:00 39.58 kg/m2 [facility] [place] [facility] Systolic blood 2021-12-08 13:00:00 125 mm[Hg] Univer sity of pressure [place] [facility] Diastolic blood 2021-12-08 13:00:00 77 mm[Hg] Unive rsity of pressure [place] [facility] Heart rate 2021-12-08 13:00:00 100 /min [facility]i ty [facility] [place] [facility] Body temperature 2021-12-08 13:00:00 37.5 Arabella Univ ersity of [place] [facility] Respiratory rate 2021-12-08 13:00:00 20 /min Univ ersity of [place] [facility] Oxygen saturation in 2021-12-08 13:00:00 95 /min University of Arterial blood by [facility] Pulse oximetry Branch Body height 2021-12-08 02:48:00 175.3 cm [facility]i ty [facility] [place] [facility] Body weight 2021-12-08 02:48:00 121.564 kg [facility]i [facility] [place] [facility] BMI 2021-12-08 02:48:00 39.58 kg/m2 [facility]i ty [facility] [place] [facility] Systolic (mm Hg) 2018-12-18 14:22:00 Devante Pérez Diastolic (mm Hg) 2018-12-18 14:22:00 Jonny bird [place] Heart Rate 2018-12-18 14:22:00 [facility] [place] Respitory Rate 2018-12-18 14:22:00 Namita maradiaga [place] Height 2018-12-18 14:22:00 177.8 cm [facility] Weight 2018-12-18 14:22:00 [facility] BMI Calculated 2018-12-18 14:22:00 [facility] Height 2018-11-19 19:49:00 175.26 cm [facility] Weight 2018-11-19 19:49:00 [facility] BMI Calculated 2018-11-19 19:49:00 Memori al [facility] Systolic (mm Hg) 2018-11-19 19:49:00 Devante rial [place] Diastolic (mm Hg) 2018-11-19 19:49:00 Mem orial [place] Heart Rate 2018-11-19 19:49:00 [facility] Respitory Rate 2018-11-19 19:49:00 Memori al [place] Respitory Rate 2018-10-10 19:28:00 Memori al [place] Weight 2018-10-10 19:28:00 [facility] Height 2018-10-10 19:28:00 177.8 cm [facility] [place] Heart Rate 2018-10-10 19:28:00 [facility] [place] BMI Calculated 2018-10-10 19:28:00 Memori al [place] Systolic (mm Hg) 2018-10-10 19:28:00 Devante rial [place] Diastolic (mm Hg) 2018-10-10 19:28:00 Mem orial [facility] Procedures Procedure Date / Time Performing Clinician Source Performed BASIC METABOLIC PANEL 2021-12-15 10:56:00 [facility] (NA, K, CL, CO2, GLUCOSE, [facility] l Branch BUN, CREATININE, [place]) CBC WITH DIFF 2021-12-15 10:56:00 [facility] CBC WITHOUT DIFF 2021-12-15 03:02:00 Hans White [facility] POCT GLUCOSE (AUTOMATED) 2021-12-14 20:59:[address] [facility] RBC 2021-12-14 19:25:00 Rishabh Bravo [facility] TRANSFUSE PACKED RBC 2021-12-14 18:53:00 Rishabh Bravo [facility] PREPARE PACKED RBC 2021-12-14 18:44:38 Rishabh Bravo [facility] BELOW THE KNEE AMPUTATION 2021-12-14 16:09:[address] [facility] RE[facility]ION [facility] BASIC METABOLIC PANEL 2021-12-14 11:27:00 Tati Pedro [facility] (NA, K, CL, CO2, GLUCOSE, Jeremi Medica l Branch BUN, CREATININE, CA) CBC WITH DIFF 2021-12-14 11:27:00 Tati NEA [facility] HB ABO GROUPING 2021-12-14 11:27:00 Shelly [facility] COVID-19 (ID NOW RAPID 2021-12-13 21:40:00 Shelly [facility] TESTING) [facility] LAB ONLY COVID 2021-12-13 21:40:00 Shelly [facility] INTERPRETATION [facility] BASIC METABOLIC PANEL 2021-12-13 11:03:00 Shelly [facility] (NA, K, CL, CO2, GLUCOSE, [place] [facility] Branch BUN, CREATININE, CA) CBC WITH DIFF 2021-12-13 11:03:00 Shelly [facility] VANCOMYCIN TROUGH 2021-12-12 19:35:00 Butch [facility] VANCOMYCIN TROUGH 2021-12-12 19:35:00 Butch [facility] BASIC METABOLIC PANEL 2021-12-12 10:10:00 Shelly [facility] (NA, K, CL, CO2, GLUCOSE, [place] [facility] BUN, CREATININE, CA) CBC WITH DIFF 2021-12-12 10:10:00 Shelly [facility] BASIC METABOLIC PANEL 2021-12-12 10:10:00 Shelly [facility] (NA, K, CL, CO2, GLUCOSE, [place] [facility] BUN, CREATININE, CA) CBC WITH DIFF 2021-12-12 10:10:00 Shelly [facility] BASIC METABOLIC PANEL 2021-12-11 13:56:00 Shelly [facility] (NA, K, CL, CO2, GLUCOSE, [place] [facility] BUN, CREATININE, CA) BASIC METABOLIC PANEL 2021-12-11 13:56:00 Shelly [facility] (NA, K, CL, CO2, GLUCOSE, [place] [facility] BUN, CREATININE, CA) CBC WITH DIFF 2021-12-11 11:19:00 Shelly [facility] CBC WITH DIFF 2021-12-11 11:19:00 [facility] VANCOMYCIN TROUGH 2021-12-10 20:40[facility] 2021-12-10 20:40:00 [facility] WITH [facility]FF 2021-12-10 19:51[facility] 2021-12-10 19:51:[address] [facility] FUN[facility] ([facility]OUT[facility]) CULTURE 2021-12-10 19:21:00 [facility] TISSUE 2021-12-10 19:21:00 [facility] CULTURE(AEROBIC/ANAEROBIC Claudia [facility] ) FUNGUS (ROUTINE) CULTURE 2021-12-10 19:21:00 [facility] 2021-12-10 19:21:00 [facility]EROBIC [facility] ) FUNGUS (ROUTINE) CULTURE 2021-12-10 19:20:00 [facility] TISSUE 2021-12-10 19:20:00 [facility]/ANAEROBIC [facility] [facility] ) FUNGUS (ROUTINE) CULTURE 2021-12-10 19:20:00 [facility] T[facility]UE 2021-12-10 19:20:00 [facility] CULTURE(AEROBIC/ANAEROBIC [facility] ) BELOW THE KNEE AMPUTATION 2021-12-10 18:10:00 [facility] PHOS[facility]US 2021-12-10 10:00:00 Shelly [facility] MAGNESIUM 2021-12-10 10:00:00 Shelly [facility] BASIC METABOLIC PANEL 2021-12-10 10:00:00 Shelly [facility] (NA, K, CL, CO2, GLUCOSE, [facility] BUN, CREATININE, CA) CBC WITH DIFF 2021-12-10 10:00:00 Shelly [facility] PHOSPHORUS 2021-12-10 10:00:00 Shelly [facility] MAGNESIUM 2021-12-10 10:00:00 Shelly [facility] BASIC METABOLIC PANEL 2021-12-10 10:00:00 Shelly [facility] (NA, K, CL, CO2, GLUCOSE, [facility] BUN, CREATININE, CA) CBC WITH DIFF 2021-12-10 10:00:00 Shelly [facility] CBC WITH DIFF 2021-12-09 09:09:00 Shelly [facility] PHOSPHORUS 2021-12-09 09:09:00 Shelly [facility] MAGNESIUM 2021-12-09 09:09:00 Shelly [facility] BASIC METABOLIC PANEL 2021-12-09 09:09:00 Shelly [facility] (NA, K, CL, CO2, GLUCOSE, [facility] BUN, CREATININE, CA) CBC WITH DIFF 2021-12-09 09:09:00 Shelly [facility] [place] PHOSPHORUS 2021-12-09 09:09:00 Shelly [facility] MAGNESIUM 2021-12-09 09:09:00 Shelly, [facility] BASIC METABOLIC PANEL 2021-12-09 09:09:00 Shelly [facility] (NA, K, CL, CO2, GLUCOSE, [facility] BUN, CREATININE, CA) CBC WITH DIFF 2021-12-09 09:09:00 Shelly [facility] PHOSPHORUS 2021-12-09 09:09:00 Shelly [facility] MAGNESIUM 2021-12-09 09:09:00 Shelly [facility] BASIC METABOLIC PANEL 2021-12-09 09:09:00 Shelly [facility] (NA, K, CL, CO2, GLUCOSE, [facility] BUN, CREATININE, CA) ABORH CONFIRMATION (LAB 2021-12-08 21:10:00 [facility]o [facility] ONLY) Medical Branch ABORH CONFIRMATION (LAB 2021-12-08 21:10:00 [facility] ONLY) Medical Branch ABORH CONFIRMATION (LAB 2021-12-08 21:10:00 [facility] ONLY) Medical Branch ASPIRATE OR ABSCESS 2021-12-08 20:03:00 [facility] ) AFB CULTURE 2021-12-08 20:03:00 Raheem Mercer [facility] ASPIRATE OR ABSCESS 2021-12-08 20:03:00 [facility]EROBIC Medica l Branch ) AFB CULTURE 2021-12-08 20:03:00 [facility]OUTINE) CULTURE 2021-12-08 20:03:00 Raheem Mercer [facility] ASPIRATE OR ABSCESS 2021-12-08 20:03:00 Ruslan [facility] CULTURE(AEROBIC/ANAEROBIC Medica l Branch ) AFB CULTURE 2021-12-08 20:03:00 [facility]OUTINE) CULTURE 2021-12-08 20:03:00 Ruslan, Raheem Uni [facility] INCISION AND DRAINAGE OF 2021-12-08 19:04:00 Raheem Mercer [facility] ABSCESS [facility] POCT GLUCOSE (AUTOMATED) 2021-12-08 18:33:00 Doctor Unassigned, [facility] [place] [facility] POCT GLUCOSE (AUTOMATED) 2021-12-08 18:33:00 Doctor Unassigned, [facility] [place] [facility] POCT GLUCOSE (AUTOMATED) 2021-12-08 18:33:00 Doctor Unassigned, [facility] [place] [facility] HB ABO GROUPING 2021-12-08 17:20:00 Salo Rae [facility] HB ABO GROUPING 2021-12-08 17:20:00 [facility] HB ABO GROUPING 2021-12-08 17:20:00 Salo Rae [facility] XR FOOT 3+ VW RIGHT 2021-12-08 03:25:56 [facility] COVID-19 (ID NOW RAPID 2021-12-08 02:59:00 Diamond Friedman [facility] TESTING) [facility] GLYCOSYLATED HEMOGLOBIN 2021-12-08 02:54:00 [facility] (A1C) [facility] GLYCOSYLATED HEMOGLOBIN 2021-12-08 02:54:00 [facility] (A1C) [facility] GLYCOSYLATED HEMOGLOBIN 2021-12-08 02:54:00 aSlo [facility] (A1C) [facility] BLOOD CULTURE SCREEN 2021-12-08 02:54:00 Diamond Friedman [facility] COMP. METABOLIC PANEL 2021-12-08 02:54:00 Diamond Friedman [facility] ([id number]) [facility] SEDIMENTATION RATE 2021-12-08 02:54:00 Diamond Friedman [facility] CBC WITH DIFF 2021-12-08 02:54:00 Diamond Friedman [facility] LACTIC ACID WHOLE BLOOD 2021-12-08 02:54:00 Diamond Friedman versity of [facility] NOTICE OF PRIVACY 2021-12-08 02:43:13 Doctor Unassigned, [facility] PRACTICES [place] [facility] CONSENT/REFUSAL FOR 2021-12-08 02:41:33 Doctor Unassigned, Maximiliano [facility] DIAGNOSIS AND TREATMENT [place] [facility] [place] Encounters Start End Encounter Admission Attending Care Care Encounter Source Date/Time Date/Time Type Type Clinicians Facility Department ID 2021-12-14 2021-12-14 Surgery Julianoediscelestino KANDIS [id number] Univers 11:00:00 13:54:00 Claudia ETIENNE [id number] ity of [facility] 4.2.7.2.686 Tom as [phone] [facility] 103 Branch 2021-12-10 2021-12-10 Surgery Suellenmiloleobardo KANDIS [id number] Univers 12:35:00 15:26:00 Claudia ETIENNE [id number] ity of [facility] 4.2.7.2.686 Tom as [phone] [facility] 103 Branch 2021-12-08 2021-12-08 Surgery KANDIS Mercer [id number] Univers 14:20:00 15:52:00 Raheem CLIFTON [id number] it y [facility] 4.2.7.2.686 Tom as [phone] [facility] 103 Branch 2021-12-08 2021-12-08 Inpatient X [facility] [id number] Univers 09:34:00 08:19:00 EDIE el [facility] 2021-12-07 2021-12-08 Emergency [facility] [id number] Univers 21:43:00 08:19:00 Diamond HOUSTON 350.1.13.10 ity [facility] 4.2.7.2.686 [facility] [phone] [facility] 084 Branch 2021-12-07 2021-12-08 Emergency X [facility] [id number] Univers 21:43:00 08:19:00 DIAMOND valdivia [facility] 2020-01-02 2020-01-02 Ambulatory nullFlavo MNA [id number] Memoria 20:15:00 20:15:00 Pre-Reg r Neurology 05 carlie Rosenthalann 2020-01-02 2020-01-02 Outpatient Re MHMISCHER MHMISCHER [id number] 15:15:00 15:15:00 Pavan 05 Justin 2019-11-27 2019-11-27 Outpatient MHIE MHIE [id number] Memoria 10:00:00 10:00:00 05 carlie Beto 2019-03-19 2019-03-19 Ambulatory nullFlavo MNA [id number] Memoria 21:45:00 21:45:00 Pre-Reg r Neurology 04 carlie [place] Beto 2019-03-19 2019-03-19 Outpatient MHIE MHIE [id number] Memoria 15:45:00 15:45:00 04 carlie Beto 2019-03-19 2019-03-19 Outpatient Re MHMISCHER MHMISCHER [id number] 15:45:00 15:45:00 Pavan 04 Justin 2018-12-18 2018-12-19 Outpatient nullFlavo MNA [id number] Memoria 14:00:00 04:59:59 r Neurology 03 carlie [place] Beto 2018-12-18 2018-12-18 Outpatient OTTONIEL GrimaldoMISCHER MHMISCHER [id number] 09:00:00 23:59:59 Pavan 03 Justin 2018-12-18 2018-12-18 Outpatient MHIE MHIE [id number] Memoria 09:00:00 09:00:00 03 carlie Beto 2018-11-19 2018-11-20 Outpatient nullFlavo MNA [id number] Memoria 19:45:00 04:59:59 r Neurology 02 carlie [place] Beto 2018-11-19 2018-11-19 Outpatient OTTONIEL GrimaldoMISCHER MHMISCHER [id number] 14:45:00 23:59:59 Pavan 02 Justin 2018-11-19 2018-11-19 Outpatient MHIE MHIE [id number] Memoria 14:45:00 14:45:00 02 carlie Pérez 2018-10-22 2018-10-22 Ambulatory nullFlavo MNA [id number] Memoria 15:45:00 15:45:00 Pre-Reg r Neurology 01 l Bobby Pérez 2018-10-22 2018-10-22 Outpatient SRINIVASAN GrimaldoSCHBRINA SHANNANSCHER [id number] 10:45:00 10:45:00 Pavan 01 Justin 2018-10-10 2018-10-11 Outpatient nullFlavo MNA [id number] Memoria 19:30:00 04:59:59 r Neurology 00 l Bobby Pérez 2018-10-10 2018-10-10 [id number] 14:30:00 23:59:59 Pavan 00 Justin 2018-10-10 2018-10-10 Outpatient MHIE OTTONIELIE [id number] Memoria 14:30:00 14:30:00 00 carlie Pérez Results Test Description Test Time Test Comments Results Result Comments Source POCT GLUCOSE (AUTOMATED) 2021-12-14 21:02:15 Test Item Value Reference Range Interpretation Comme nts POCT GLU (test code = 6159036916) 162 mg/dL 70-110 H Lab Interpretation (test code = 92960-2) [facility] (in units), 2 Units 2021-12-14 18:44:38 Test Item Value Reference Range Interpretation Comments Cross Match Result Compatible (test code = 4409) ISBT Blood Type Code (test code = 930604) Unit Blood Type (test A Pos code = 4410) Unit Number (test [id number] code = 4411) Blood Expiration Date & Time (test code = 405662) Status Information Issued (test code = 4412) Product Red Blood Cells Identification (test code = 4413) Product Code (test [id number] Performed at [facility] code = 4414) Laboratory Services - [facility] [address] [place] [address]Dvzd Free: [phone] A No. [id number] [facility] - ONCE [id number] 12:07:21 Test Item Value Reference Range Interpretation Comments ABO & RH (test code A POSITIVE Performe d at [facility] = 20) Laboratory Serv ices - [facility] Blood Bank3 [address] [facility] s [address]Qzug Free: [phone] A No. [id number] IAT (test code = Negative Performed a t [facility] 1185) Laboratory Serv [facility] Blood Bank3 [facility] s [address]Kbxb Free: [phone] A No. [id number] [facility] CULTURE(AEROBIC/ANAEROBIC)2021-12-13 13:16:47 Test Item Value Reference Range Interpretation Comments TISSUE CULTURE No aerobic/anaerobic (test code = organisms isolated 27796-5) Gram stain (test No Polymorphonuclear code = 664-3) leukocytes [facility] CULTURE(AEROBIC/ANAEROBIC)2021-12-13 13:16:47 Test Item Value Reference Range Interpretation Comments TISSUE CULTURE (test No aerobic/anaerobic code = 36810-0) organisms isolated Gram stain (test code Few Mononuclear cells = 664-3) [facility] METABOLIC PANEL (NA, K, CL, CO2, GLUCOSE, BUN, CREATININE, CA)2021-12-13 12:09:43 Test Item Value Reference Range Interpretation Comments NA (test code = 137 mmol/L 135-145 4447534805) K (test code = 3.5 mmol/L 3.5-5 7842858981) CL (test code = 104 mmol/L 98-108 3004640964) CO2 TOTAL (test code = 32 mmol/L 23-31 H 6441110192) AGAP (test code = 2-16 L 7615303121) BUN (test code = 8 mg/dL 7-23 6840816175) GLUCOSE (test code = 202 mg/dL 70-110 H 4886216626) CREATININE (test code = 0.94 mg/dL 0.6-1.25 3171177839) CALCIUM (test code = 7.9 mg/dL 8.6-10.6 L 3155379817) eGFR (test code = mL/min/1.73m2 3602666508) SEEMA (test code = SEEMA) Association of Glomerular Filtration Rate (GFR) and Staging of Kidney Disease* + --+ --+ ------+| GFR (mL/min/1.73 m2) ?| With Kidney Damage ?| ?Without Kidney Damage+ --------+ --------+ +| ?>90 ?| ?Stage one ?| ? Normal ?+ ---+ ---+ -------+| ?60-89 ?| ?Stage two ?| ? Decreased GFR ? + --+ --+ ------+| ?30-59 ?| ?Stage three ?| ? Stage three ? + --+ --+ ------+| ?15-29 ?| ?Stage four ? | ? Stage four ?+ ---+ ---+ -------+| ?<15 (or dialysis) ? ?| ?Stage five ? | ? Stage five ?+ ---+ ---+ -------+ *Each stage assumes the associated GFR level has been in effect for at least three months. ?Stages 1 to 5, with or without kidney disease, indicate chronic kidney disease. Notes: Determination of stages one and two (with eGFR >59mL/min/1.73 m2) requires estimation of kidney damage for at least three months as defined by structural or functional abnormalities of the kidney, manifested by either:Pathological abnormalities or Markers of kidney damage (including abnormalities in the composition of the blood or urine or abnormalities in imaging tests). Lab Interpretation Abnormal (test code = 02149-8) [facility] WITH [id number] 11:58:29 Test Item Value Reference Range Interpretation Comments WBC (test code = See_Comment H [Automated 7490-2) message] The system which generated this result transmit jossue reference range : 4.20 - 10.70 10*3/?L. The reference range was not used to interpret this result as normal/abnormal . RBC (test code = See_Comment L [Automated 739-8) message] The system which generated this result transmit jossue reference range : 4.26 - 5.52 10*6/?L. The reference range was not used to interpret this result as normal/abnormal . HGB (test code = 9.1 g/dL 12.2-16.4 L 718-7) HCT (test code = 28.6 % 38.4-49.3 L 4544-3) MCV (test code = 85.9 fL 81.7-95.6 787-2) MCH (test code = 27.3 pg 26.1-32.7 785-6) MCHC (test code = 31.8 g/dL 31.2-35 786-4) RDW-SD (test code = 45.9 fL 38.5-51.6 20745-6) RDW-CV (test code = 14.8 % 12.1-15.4 788-0) PLT (test code = See_Comment H [Automated 777-3) message] The system which generated this result transmit jossue reference range : 150 - 328 10*3/ ?L. The reference range was not u sed to interpret th is result as normal/abnormal . MPV (test code = 9.8 fL 9.8-13 32683-0) NRBC/100 WBC (test See_Comment [Automat ed code = 2252692468) message] The system which generated this result transmit jossue reference range : 0.0 - 10.0 /100 WBCs. The reference range was not used to interpret this result as normal/abnormal . NRBC x10^3 (test code See_Comment [Auto mated = 0221876029) message] The system which generated this result transmit jossue reference range : 10*3/?L. The reference range was not used to interpret this result as normal/abnormal . SEG % (test code = 74 % 33-76 17017-9) BAND % (test code = 4 % 0-1 H 72225-1) META % (test code = 3 % See_Comment H [Automa jossue 36561-5) message] The system which generated this result transmit jossue reference range : <=0. The refere nce range was not u sed to interpret th is result as normal/abnormal . MYELO % (test code = 2 % See_Comment H [Autom ated 59159-3) message] The system which generated this result transmit jossue reference range : <=0. The refere nce range was not u sed to interpret th is result as normal/abnormal . LYMPH % (test code = 15 % 14-54 42417-6) MONO % (test code = 2 % 0-4 24587-2) ANC (test code = 17.98 10*3/uL 1.99-6.95 H 753-4) Lab Interpretation Abnormal (test code = 46319-9) [facility] - Draw within 30 minutes prior to 3RD dose.2021-12-12 21:14:28 Test Item Value Reference Range Interpretation Comments VANCO TROUGH (test code 11.2 ug/mL 10-20 = 8915193618) SEEMA (test code = SEEMA) Toxic Range: ?>20 ug/mL 15-20 ug/mL is recommended for severe infection or when Vancomycin NATE is greater than or equal to 2. Lab Interpretation (test Normal code = 76621-7) [facility] - Draw within 30 minutes prior to 3RD dose.2021-12-12 21:14:28 Test Item Value Reference Range Interpretation Comments VANCO TROUGH (test code 11.2 ug/mL 10-20 = 1049920813) SEEMA (test code = SEEMA) Toxic Range: ?>20 ug/mL 15-20 ug/mL is recommended for severe infection or when Vancomycin NATE is greater than or equal to 2. Lab Interpretation (test Normal code = 81595-9) [facility] WITH [id number] 11:01:53 Test Item Value Reference Range Interpretation Comments WBC (test code = See_Comment H [Automated 6690-2) message] The system which generated this result transmit jossue reference range : 4.20 - 10.70 10*3/?L. The reference range was not used to interpret this result as normal/abnormal . RBC (test code = See_Comment L [Automated 429-8) message] The system which generated this result transmit jossue reference range : 4.26 - 5.52 10*6/?L. The reference range was not used to interpret this result as normal/abnormal . HGB (test code = 9.1 g/dL 12.2-16.4 L 718-7) HCT (test code = 28.1 % 38.4-49.3 L 4544-3) MCV (test code = 84.9 fL 81.7-95.6 787-2) MCH (test code = 27.5 pg 26.1-32.7 785-6) MCHC (test code = 32.4 g/dL 31.2-35 786-4) RDW-SD (test code = 45.1 fL 38.5-51.6 86182-0) RDW-CV (test code = 14.6 % 12.1-15.4 788-0) PLT (test code = See_Comment [Automated 777-3) message] The system which generated this result transmit jossue reference range : 150 - 328 10*3/ ?L. The reference range was not u sed to interpret th is result as normal/abnormal . MPV (test code = 9.9 fL 9.8-13 31448-4) NRBC/100 WBC (test See_Comment [Automat ed code = 8939703529) message] The system which generated this result transmit jossue reference range : 0.0 - 10.0 /100 WBCs. The reference range was not used to interpret this result as normal/abnormal . NRBC x10^3 (test code See_Comment [Auto mated = 5749283704) message] The system which generated this result transmit jossue reference range : 10*3/?L. The reference range was not used to interpret this result as normal/abnormal . SEG % (test code = 74 % 33-76 14902-6) BAND % (test code = 7 % 0-1 H 33134-6) META % (test code = 1 % See_Comment H [Automa jossue 04355-1) message] The system which generated this result transmit jossue reference range : <=0. The refere nce range was not u sed to interpret th is result as normal/abnormal . MYELO % (test code = 2 % See_Comment H [Autom ated 88403-8) message] The system which generated this result transmit jossue reference range : <=0. The refere nce range was not u sed to interpret th is result as normal/abnormal . LYMPH % (test code = 11 % 14-54 L 52887-5) REACT LYMPH % (test 2 % code = 3814572653) MONO % (test code = 2 % 0-4 13956-7) EOS % (test code = 1 % 0-3 44646-7) ANC (test code = 23.37 10*3/uL 1.99-6.95 H 753-4) Lab Interpretation Abnormal (test code = 07073-9) [facility] WITH [id number] 11:01:53 Test Item Value Reference Range Interpretation Comments WBC (test code = See_Comment H [Automated 6690-2) message] The system which generated this result transmit jossue reference range : 4.20 - 10.70 10*3/?L. The reference range was not used to interpret this result as normal/abnormal . RBC (test code = See_Comment L [Automated 789-8) message] The system which generated this result transmit jossue reference range : 4.26 - 5.52 10*6/?L. The reference range was not used to interpret this result as normal/abnormal . HGB (test code = 9.1 g/dL 12.2-16.4 L 718-7) HCT (test code = 28.1 % 38.4-49.3 L 4544-3) MCV (test code = 84.9 fL 81.7-95.6 787-2) MCH (test code = 27.5 pg 26.1-32.7 785-6) MCHC (test code = 32.4 g/dL 31.2-35 786-4) RDW-SD (test code = 45.1 fL 38.5-51.6 97989-1) RDW-CV (test code = 14.6 % 12.1-15.4 788-0) PLT (test code = See_Comment [Automated 777-3) message] The system which generated this result transmit jossue reference range : 150 - 328 10*3/ ?L. The reference range was not u sed to interpret th is result as normal/abnormal . MPV (test code = 9.9 fL 9.8-13 12315-3) NRBC/100 WBC (test See_Comment [Automat ed code = 2703938945) message] The system which generated this result transmit jossue reference range : 0.0 - 10.0 /100 WBCs. The reference range was not used to interpret this result as normal/abnormal . NRBC x10^3 (test code See_Comment [Auto mated = 8160336994) message] The system which generated this result transmit jossue reference range : 10*3/?L. The reference range was not used to interpret this result as normal/abnormal . SEG % (test code = 74 % 33-76 62691-7) BAND % (test code = 7 % 0-1 H 14488-9) META % (test code = 1 % See_Comment H [Automa jossue 37534-8) message] The system which generated this result transmit jossue reference range : <=0. The refere nce range was not u sed to interpret th is result as normal/abnormal . MYELO % (test code = 2 % See_Comment H [Autom ated 17802-7) message] The system which generated this result transmit jossue reference range : <=0. The refere nce range was not u sed to interpret th is result as normal/abnormal . LYMPH % (test code = 11 % 14-54 L 97084-2) REACT LYMPH % (test 2 % code = 5954499335) MONO % (test code = 2 % 0-4 30686-1) EOS % (test code = 1 % 0-3 83408-9) ANC (test code = 23.37 10*3/uL 1.99-6.95 H 753-4) Lab Interpretation Abnormal (test code = 84520-6) [facility] METABOLIC PANEL (NA, K, CL, CO2, GLUCOSE, BUN, CREATININE, CA)2021-12-12 10:39:52 Test Item Value Reference Range Interpretation Comments NA (test code = 137 mmol/L 135-145 8303282479) K (test code = 3.7 mmol/L 3.5-5 7308912536) CL (test code = 105 mmol/L 98-108 0965576167) CO2 TOTAL (test code = 33 mmol/L 23-31 H 8695036662) AGAP (test code = 2-16 L 7911317700) BUN (test code = 10 mg/dL 7-23 7327930658) GLUCOSE (test code = 127 mg/dL 70-110 H 3230523336) CREATININE (test code = 0.92 mg/dL 0.6-1.25 6482692503) CALCIUM (test code = 7.5 mg/dL 8.6-10.6 L 0633058947) eGFR (test code = mL/min/1.73m2 3548871408) SEEMA (test code = SEEMA) Association of Glomerular Filtration Rate (GFR) and Staging of Kidney Disease* + --+ --+ ------+| GFR (mL/min/1.73 m2) ?| With Kidney Damage ?| ?Without Kidney Damage+ --------+ --------+ +| ?>90 ?| ?Stage one ?| ? Normal ?+ ---+ ---+ -------+| ?60-89 ?| ?Stage two ?| ? Decreased GFR ? + --+ --+ ------+| ?30-59 ?| ?Stage three ?| ? Stage three ? + --+ --+ ------+| ?15-29 ?| ?Stage four ? | ? Stage four ?+ ---+ ---+ -------+| ?<15 (or dialysis) ? ?| ?Stage five ? | ? Stage five ?+ ---+ ---+ -------+ *Each stage assumes the associated GFR level has been in effect for at least three months. ?Stages 1 to 5, with or without kidney disease, indicate chronic kidney disease. Notes: Determination of stages one and two (with eGFR >59mL/min/1.73 m2) requires estimation of kidney damage for at least three months as defined by structural or functional abnormalities of the kidney, manifested by either:Pathological abnormalities or Markers of kidney damage (including abnormalities in the composition of the blood or urine or abnormalities in imaging tests). Lab Interpretation Abnormal (test code = 39918-4) [facility] METABOLIC PANEL (NA, K, CL, CO2, GLUCOSE, BUN, CREATININE, CA)2021-12-12 10:39:52 Test Item Value Reference Range Interpretation Comments NA (test code = 137 mmol/L 135-145 2345900398) K (test code = 3.7 mmol/L 3.5-5 7545547237) CL (test code = 105 mmol/L 98-108 4381434070) CO2 TOTAL (test code = 33 mmol/L 23-31 H 8373889558) AGAP (test code = 2-16 L 9410422115) BUN (test code = 10 mg/dL 7-23 3831183736) GLUCOSE (test code = 127 mg/dL 70-110 H 2858656149) CREATININE (test code = 0.92 mg/dL 0.6-1.25 3301225963) CALCIUM (test code = 7.5 mg/dL 8.6-10.6 L 6281733760) eGFR (test code = mL/min/1.73m2 5558954835) SEEMA (test code = SEEMA) Association of Glomerular Filtration Rate (GFR) and Staging of Kidney Disease* + --+ --+ ------+| GFR (mL/min/1.73 m2) ?| With Kidney Damage ?| ?Without Kidney Damage+ --------+ --------+ +| ?>90 ?| ?Stage one ?| ? Normal ?+ ---+ ---+ -------+| ?60-89 ?| ?Stage two ?| ? Decreased GFR ? + --+ --+ ------+| ?30-59 ?| ?Stage three ?| ? Stage three ? + --+ --+ ------+| ?15-29 ?| ?Stage four ? | ? Stage four ?+ ---+ ---+ -------+| ?<15 (or dialysis) ? ?| ?Stage five ? | ? Stage five ?+ ---+ ---+ -------+ *Each stage assumes the associated GFR level has been in effect for at least three months. ?Stages 1 to 5, with or without kidney disease, indicate chronic kidney disease. Notes: Determination of stages one and two (with eGFR >59mL/min/1.73 m2) requires estimation of kidney damage for at least three months as defined by structural or functional abnormalities of the kidney, manifested by either:Pathological abnormalities or Markers of kidney damage (including abnormalities in the composition of the blood or urine or abnormalities in imaging tests). Lab Interpretation Abnormal (test code = 66106-8) [facility] WITH [id number] 12:18:08 Test Item Value Reference Range Interpretation Comments WBC (test code = See_Comment H [Automated 6290-2) message] The system which generated this result transmit jossue reference range : 4.20 - 10.70 10*3/?L. The reference range was not used to interpret this result as normal/abnormal . RBC (test code = See_Comment L [Automated 066-8) message] The system which generated this result transmit jossue reference range : 4.26 - 5.52 10*6/?L. The reference range was not used to interpret this result as normal/abnormal . HGB (test code = 9.6 g/dL 12.2-16.4 L 718-7) HCT (test code = 30.1 % 38.4-49.3 L 4544-3) MCV (test code = 83.4 fL 81.7-95.6 787-2) MCH (test code = 26.6 pg 26.1-32.7 785-6) MCHC (test code = 31.9 g/dL 31.2-35 786-4) RDW-SD (test code = 43.5 fL 38.5-51.6 44887-3) RDW-CV (test code = 14.5 % 12.1-15.4 788-0) PLT (test code = See_Comment [Automated 777-3) message] The system which generated this result transmit jossue reference range : 150 - 328 10*3/ ?L. The reference range was not u sed to interpret th is result as normal/abnormal . MPV (test code = 11.2 fL 9.8-13 93715-8) NRBC/100 WBC (test See_Comment [Automat ed code = 3129823132) message] The system which generated this result transmit jossue reference range : 0.0 - 10.0 /100 WBCs. The reference range was not used to interpret this result as normal/abnormal . NRBC x10^3 (test code See_Comment [Auto mated = 4780668855) message] The system which generated this result transmit jossue reference range : 10*3/?L. The reference range was not used to interpret this result as normal/abnormal . GRAN MAT (NEUT) % 75.3 % (test code = 770-8) IMM GRAN % (test code 7.80 % = 6784054967) LYMPH % (test code = 12.6 % 736-9) MONO % (test code = 3.0 % 5905-5) EOS % (test code = 0.8 % 713-8) BASO % (test code = 0.5 % 706-2) GRAN MAT x10^3(ANC) 22.65 10*3/uL 1.99-6.95 H (test code = 6446819419) IMM GRAN x10^3 (test 2.35 10*3/uL 0-0.06 H code = 5466351574) LYMPH x10^3 (test code 3.78 10*3/uL 1.09-3.23 H = 731-0) MONO x10^3 (test code 0.91 10*3/uL 0.36-1.02 = 742-7) EOS x10^3 (test code = 0.24 10*3/uL 0.06-0.53 711-2) BASO x10^3 (test code 0.14 10*3/uL 0.01-0.09 H = 704-7) BANDS (test code = Increased A 1178768660) TOXIC CHANGES (test Present A code = 803-7) Lab Interpretation Abnormal (test code = 79221-2) [facility] WITH [id number] 12:18:08 Test Item Value Reference Range Interpretation Comments WBC (test code = See_Comment H [Automated 7890-2) message] The system which generated this result transmit jossue reference range : 4.20 - 10.70 10*3/?L. The reference range was not used to interpret this result as normal/abnormal . RBC (test code = See_Comment L [Automated 599-8) message] The system which generated this result transmit jossue reference range : 4.26 - 5.52 10*6/?L. The reference range was not used to interpret this result as normal/abnormal . HGB (test code = 9.6 g/dL 12.2-16.4 L 718-7) HCT (test code = 30.1 % 38.4-49.3 L 4544-3) MCV (test code = 83.4 fL 81.7-95.6 787-2) MCH (test code = 26.6 pg 26.1-32.7 785-6) MCHC (test code = 31.9 g/dL 31.2-35 786-4) RDW-SD (test code = 43.5 fL 38.5-51.6 67910-6) RDW-CV (test code = 14.5 % 12.1-15.4 788-0) PLT (test code = See_Comment [Automated 777-3) message] The system which generated this result transmit jossue reference range : 150 - 328 10*3/ ?L. The reference range was not u sed to interpret th is result as normal/abnormal . MPV (test code = 11.2 fL 9.8-13 65120-7) NRBC/100 WBC (test See_Comment [Automat ed code = 5275795329) message] The system which generated this result transmit jossue reference range : 0.0 - 10.0 /100 WBCs. The reference range was not used to interpret this result as normal/abnormal . NRBC x10^3 (test code See_Comment [Auto mated = 6974708916) message] The system which generated this result transmit jossue reference range : 10*3/?L. The reference range was not used to interpret this result as normal/abnormal . GRAN MAT (NEUT) % 75.3 % (test code = 770-8) IMM GRAN % (test code 7.80 % = 7341071967) LYMPH % (test code = 12.6 % 736-9) MONO % (test code = 3.0 % 5905-5) EOS % (test code = 0.8 % 713-8) BASO % (test code = 0.5 % 706-2) GRAN MAT x10^3(ANC) 22.65 10*3/uL 1.99-6.95 H (test code = 1853637842) IMM GRAN x10^3 (test 2.35 10*3/uL 0-0.06 H code = 9370936217) LYMPH x10^3 (test code 3.78 10*3/uL 1.09-3.23 H = 731-0) MONO x10^3 (test code 0.91 10*3/uL 0.36-1.02 = 742-7) EOS x10^3 (test code = 0.24 10*3/uL 0.06-0.53 711-2) BASO x10^3 (test code 0.14 10*3/uL 0.01-0.09 H = 704-7) BANDS (test code = Increased A 2373957244) TOXIC CHANGES (test Present A code = 803-7) Lab Interpretation Abnormal (test code = 56751-7) [facility] WITH [id number] 20:42:21 Test Item Value Reference Range Interpretation Comments WBC (test code = See_Comment H [Automated 6690-2) message] The sy stem which generated this result transmitted reference range : 4.20 - 10.70 10*3/?L. The reference range was not used to interpret this result as normal/abnormal . RBC (test code = See_Comment [Automated 789-8) message] The sy stem which generated this result transmitted reference range : 4.26 - 5.52 10*6/?L. The reference range was not used to interpret this result as normal/abnormal . HGB (test code = 12.1 g/dL 12.2-16.4 L 718-7) HCT (test code = 39.8 % 38.4-49.3 4544-3) MCV (test code = 90.0 fL 81.7-95.6 787-2) MCH (test code = 27.4 pg 26.1-32.7 785-6) MCHC (test code = 30.4 g/dL 31.2-35 L 786-4) RDW-SD (test code = 55.5 fL 38.5-51.6 H 33090-1) RDW-CV (test code = 20.2 % 12.1-15.4 H 788-0) PLT (test code = See_Comment [Automated 777-3) message] The sy stem which generated this result transmitted reference range : 150 - 328 10*3/ ?L. The reference r jt was not used to interpret this result as normal/abnormal . MPV (test code = 13.0 fL 9.8-13 60498-1) IPF % (test code = 6.2 % 1.2-10.7 Platelet count 4508199569) measured by fluorescence method. NRBC/100 WBC (test See_Comment [Automat ed code = 0499874371) message] The system which generated this result transmitted reference range : 0.0 - 10.0 /100 WBCs. The refer ence range was not u sed to interpret th is result as normal/abnormal . NRBC x10^3 (test code See_Comment [Auto mated = 9134617918) message] The s ystem which generated this result transmitted reference range : 10*3/?L. The reference range was not used to interpret this result as normal/abnormal . GRAN MAT (NEUT) % 66.9 % (test code = 770-8) IMM GRAN % (test code 11.00 % = 2903711667) LYMPH % (test code = 17.8 % 736-9) MONO % (test code = 2.5 % 5905-5) EOS % (test code = 0.9 % 713-8) BASO % (test code = 0.9 % 706-2) GRAN MAT x10^3(ANC) 14.50 10*3/uL 1.99-6.95 H (test code = 7956168919) IMM GRAN x10^3 (test 2.39 10*3/uL 0-0.06 H code = 1351800608) LYMPH x10^3 (test 3.87 10*3/uL 1.09-3.23 H code = 731-0) MONO x10^3 (test code 0.54 10*3/uL 0.36-1.02 = 742-7) EOS x10^3 (test code 0.19 10*3/uL 0.06-0.53 = 711-2) BASO x10^3 (test code 0.20 10*3/uL 0.01-0.09 H = 704-7) POLYCHROMASIA (test 2+ See_Comment [Automa jossue code = 06550-5) message] The system which generated this result transmitted reference range : 2+. The referen ce range was not u sed to interpret th is result as normal/abnormal . Lab Interpretation Abnormal (test code = 85292-1) [facility] WITH [id number] 20:42:21 Test Item Value Reference Range Interpretation Comments WBC (test code = See_Comment H [Automated 6809-2) message] The sy stem which generated this result transmitted reference range : 4.20 - 10.70 10*3/?L. The reference range was not used to interpret this result as normal/abnormal . RBC (test code = See_Comment [Automated 162-8) message] The sy stem which generated this result transmitted reference range : 4.26 - 5.52 10*6/?L. The reference range was not used to interpret this result as normal/abnormal . HGB (test code = 12.1 g/dL 12.2-16.4 L 718-7) HCT (test code = 39.8 % 38.4-49.3 4544-3) MCV (test code = 90.0 fL 81.7-95.6 787-2) MCH (test code = 27.4 pg 26.1-32.7 785-6) MCHC (test code = 30.4 g/dL 31.2-35 L 786-4) RDW-SD (test code = 55.5 fL 38.5-51.6 H 45614-8) RDW-CV (test code = 20.2 % 12.1-15.4 H 788-0) PLT (test code = See_Comment [Automated 777-3) message] The sy stem which generated this result transmitted reference range : 150 - 328 10*3/ ?L. The reference r jt was not used to interpret this result as normal/abnormal . MPV (test code = 13.0 fL 9.8-13 11954-9) IPF % (test code = 6.2 % 1.2-10.7 Platelet count [id number]) measured by fluorescence method. NRBC/100 WBC (test See_Comment [Automat ed code = 0463550008) message] The system which generated this result transmitted reference range : 0.0 - 10.0 /100 WBCs. The refer ence range was not u sed to interpret th is result as normal/abnormal . NRBC x10^3 (test code See_Comment [Auto mated = 6923079900) message] The s ystem which generated this result transmitted reference range : 10*3/?L. The reference range was not used to interpret this result as normal/abnormal . GRAN MAT (NEUT) % 66.9 % (test code = 770-8) IMM GRAN % (test code 11.00 % = 6088909789) LYMPH % (test code = 17.8 % 736-9) MONO % (test code = 2.5 % 5905-5) EOS % (test code = 0.9 % 713-8) BASO % (test code = 0.9 % 706-2) GRAN MAT x10^3(ANC) 14.50 10*3/uL 1.99-6.95 H (test code = 4186506065) IMM GRAN x10^3 (test 2.39 10*3/uL 0-0.06 H code = 5145203974) LYMPH x10^3 (test 3.87 10*3/uL 1.09-3.23 H code = 731-0) MONO x10^3 (test code 0.54 10*3/uL 0.36-1.02 = 742-7) EOS x10^3 (test code 0.19 10*3/uL 0.06-0.53 = 711-2) BASO x10^3 (test code 0.20 10*3/uL 0.01-0.09 H = 704-7) POLYCHROMASIA (test 2+ See_Comment [Automa jossue code = 08398-4) message] The system which generated this result transmitted reference range : 2+. The referen ce range was not u sed to interpret th is result as normal/abnormal . Lab Interpretation Abnormal (test code = 99614-9) [facility] WITH [id number] 10:56:59 Test Item Value Reference Range Interpretation Comments WBC (test code = See_Comment H [Automated 1590-2) message] The system which generated this result transmit jossue reference range : 4.20 - 10.70 10*3/?L. The reference range was not used to interpret this result as normal/abnormal . RBC (test code = See_Comment [Automated 449-8) message] The system which generated this result transmit jossue reference range : 4.26 - 5.52 10*6/?L. The reference range was not used to interpret this result as normal/abnormal . HGB (test code = 12.8 g/dL 12.2-16.4 718-7) HCT (test code = 39.1 % 38.4-49.3 4544-3) MCV (test code = 82.0 fL 81.7-95.6 787-2) MCH (test code = 26.8 pg 26.1-32.7 785-6) MCHC (test code = 32.7 g/dL 31.2-35 786-4) RDW-SD (test code = 41.0 fL 38.5-51.6 23207-4) RDW-CV (test code = 13.7 % 12.1-15.4 788-0) PLT (test code = See_Comment [Automated 777-3) message] The system which generated this result transmit jossue reference range : 150 - 328 10*3/ ?L. The reference range was not u sed to interpret th is result as normal/abnormal . MPV (test code = 10.3 fL 9.8-13 66813-3) NRBC/100 WBC (test See_Comment [Automat ed code = 7066603143) message] The system which generated this result transmit jossue reference range : 0.0 - 10.0 /100 WBCs. The reference range was not used to interpret this result as normal/abnormal . NRBC x10^3 (test code See_Comment [Auto mated = 1772180080) message] The system which generated this result transmit jossue reference range : 10*3/?L. The reference range was not used to interpret this result as normal/abnormal . GRAN MAT (NEUT) % 80.7 % (test code = 770-8) IMM GRAN % (test code 4.60 % = 2493876584) LYMPH % (test code = 8.7 % 736-9) MONO % (test code = 4.4 % 5905-5) EOS % (test code = 1.1 % 713-8) BASO % (test code = 0.5 % 706-2) GRAN MAT x10^3(ANC) 18.25 10*3/uL 1.99-6.95 H (test code = 2030205843) IMM GRAN x10^3 (test 1.03 10*3/uL 0-0.06 H code = 3061436162) LYMPH x10^3 (test code 1.97 10*3/uL 1.09-3.23 = 731-0) MONO x10^3 (test code 0.99 10*3/uL 0.36-1.02 = 742-7) EOS x10^3 (test code = 0.26 10*3/uL 0.06-0.53 711-2) BASO x10^3 (test code 0.11 10*3/uL 0.01-0.09 H = 704-7) Lab Interpretation Abnormal (test code = 01106-8) [facility] WITH [id number] 10:56:59 Test Item Value Reference Range Interpretation Comments WBC (test code = See_Comment H [Automated 6690-2) message] The system which generated this result transmit jossue reference range : 4.20 - 10.70 10*3/?L. The reference range was not used to interpret this result as normal/abnormal . RBC (test code = See_Comment [Automated 789-8) message] The system which generated this result transmit jossue reference range : 4.26 - 5.52 10*6/?L. The reference range was not used to interpret this result as normal/abnormal . HGB (test code = 12.8 g/dL 12.2-16.4 718-7) HCT (test code = 39.1 % 38.4-49.3 4544-3) MCV (test code = 82.0 fL 81.7-95.6 787-2) MCH (test code = 26.8 pg 26.1-32.7 785-6) MCHC (test code = 32.7 g/dL 31.2-35 786-4) RDW-SD (test code = 41.0 fL 38.5-51.6 87272-2) RDW-CV (test code = 13.7 % 12.1-15.4 788-0) PLT (test code = See_Comment [Automated 777-3) message] The system which generated this result transmit jossue reference range : 150 - 328 10*3/ ?L. The reference range was not u sed to interpret th is result as normal/abnormal . MPV (test code = 10.3 fL 9.8-13 96436-3) NRBC/100 WBC (test See_Comment [Automat ed code = 4729533069) message] The system which generated this result transmit jossue reference range : 0.0 - 10.0 /100 WBCs. The reference range was not used to interpret this result as normal/abnormal . NRBC x10^3 (test code See_Comment [Auto mated = 8401867736) message] The system which generated this result transmit jossue reference range : 10*3/?L. The reference range was not used to interpret this result as normal/abnormal . GRAN MAT (NEUT) % 80.7 % (test code = 770-8) IMM GRAN % (test code 4.60 % = 0422714755) LYMPH % (test code = 8.7 % 736-9) MONO % (test code = 4.4 % 5905-5) EOS % (test code = 1.1 % 713-8) BASO % (test code = 0.5 % 706-2) GRAN MAT x10^3(ANC) 18.25 10*3/uL 1.99-6.95 H (test code = 6837474404) IMM GRAN x10^3 (test 1.03 10*3/uL 0-0.06 H code = 1183579633) LYMPH x10^3 (test code 1.97 10*3/uL 1.09-3.23 = 731-0) MONO x10^3 (test code 0.99 10*3/uL 0.36-1.02 = 742-7) EOS x10^3 (test code = 0.26 10*3/uL 0.06-0.53 711-2) BASO x10^3 (test code 0.11 10*3/uL 0.01-0.09 H = 704-7) Lab Interpretation Abnormal (test code = 46162-1) [facility] [id number] 10:33:33 Test Item Value Reference Range Interpretation Comments MAGNESIUM (test code = 5298298087) 2.4 mg/dL 1.7-2.4 Lab Interpretation (test code = Normal 35871-1) [facility] [id number] 10:33:33 Test Item Value Reference Range Interpretation Comments PHOSPHORUS (test code = 1136459429) 2.1 mg/dL 2.5-5 L Lab Interpretation (test code = Abnormal 89889-0) [facility] (NA, K, CL, CO2, GLUCOSE, BUN, CREATININE, CA)2021-12-10 10:33:33 Test Item Value Reference Range Interpretation Comments NA (test code = 136 mmol/L 135-145 6942338215) K (test code = 3.0 mmol/L 3.5-5 L 5109364913) CL (test code = 100 mmol/L 98-108 7261158479) CO2 TOTAL (test code = 31 mmol/L 23-31 9773984624) AGAP (test code = 2-16 3563577993) BUN (test code = 17 mg/dL 7-23 7161545415) GLUCOSE (test code = 117 mg/dL 70-110 H 2479474755) CREATININE (test code = 0.97 mg/dL 0.6-1.25 0818074910) CALCIUM (test code = 8.1 mg/dL 8.6-10.6 L 5083838118) eGFR (test code = mL/min/1.73m2 4797922719) SEEMA (test code = SEEMA) Association of Glomerular Filtration Rate (GFR) and Staging of Kidney Disease* + --+ --+ ------+| GFR (mL/min/1.73 m2) ?| With Kidney Damage ?| ?Without Kidney Damage+ --------+ --------+ +| ?>90 ?| ?Stage one ?| ? Normal ?+ ---+ ---+ -------+| ?60-89 ?| ?Stage two ?| ? Decreased GFR ? + --+ --+ ------+| ?30-59 ?| ?Stage three ?| ? Stage three ? + --+ --+ ------+| ?15-29 ?| ?Stage four ? | ? Stage four ?+ ---+ ---+ -------+| ?<15 (or dialysis) ? ?| ?Stage five ? | ? Stage five ?+ ---+ ---+ -------+ *Each stage assumes the associated GFR level has been in effect for at least three months. ?Stages 1 to 5, with or without kidney disease, indicate chronic kidney disease. Notes: Determination of stages one and two (with eGFR >59mL/min/1.73 m2) requires estimation of kidney damage for at least three months as defined by structural or functional abnormalities of the kidney, manifested by either:Pathological abnormalities or Markers of kidney damage (including abnormalities in the composition of the blood or urine or abnormalities in imaging tests). Lab Interpretation Abnormal (test code = 63581-9) [facility] [id number] 10:33:33 Test Item Value Reference Range Interpretation Comments MAGNESIUM (test code = 8826867834) 2.4 mg/dL 1.7-2.4 Lab Interpretation (test code = Normal 13019-0) [facility] [id number] 10:33:33 Test Item Value Reference Range Interpretation Comments PHOSPHORUS (test code = 1909366206) 2.1 mg/dL 2.5-5 L Lab Interpretation (test code = Abnormal 44631-5) [facility] METABOLIC PANEL (NA, K, CL, CO2, GLUCOSE, BUN, CREATININE, CA)2021-12-10 10:33:33 Test Item Value Reference Range Interpretation Comments NA (test code = 136 mmol/L 135-145 0336953609) K (test code = 3.0 mmol/L 3.5-5 L 1362944335) CL (test code = 100 mmol/L 98-108 4011853566) CO2 TOTAL (test code = 31 mmol/L 23-31 7999701051) AGAP (test code = 2-16 9038629747) BUN (test code = 17 mg/dL 7-23 4337050720) GLUCOSE (test code = 117 mg/dL 70-110 H 0366282703) CREATININE (test code = 0.97 mg/dL 0.6-1.25 7043500315) CALCIUM (test code = 8.1 mg/dL 8.6-10.6 L 7163806878) eGFR (test code = mL/min/1.73m2 6387948274) SEEMA (test code = SEEMA) Association of Glomerular Filtration Rate (GFR) and Staging of Kidney Disease* + --+ --+ ------+| GFR (mL/min/1.73 m2) ?| With Kidney Damage ?| ?Without Kidney Damage+ --------+ --------+ +| ?>90 ?| ?Stage one ?| ? Normal ?+ ---+ ---+ -------+| ?60-89 ?| ?Stage two ?| ? Decreased GFR ? + --+ --+ ------+| ?30-59 ?| ?Stage three ?| ? Stage three ? + --+ --+ ------+| ?15-29 ?| ?Stage four ? | ? Stage four ?+ ---+ ---+ -------+| ?<15 (or dialysis) ? ?| ?Stage five ? | ? Stage five ?+ ---+ ---+ -------+ *Each stage assumes the associated GFR level has been in effect for at least three months. ?Stages 1 to 5, with or without kidney disease, indicate chronic kidney disease. Notes: Determination of stages one and two (with eGFR >59mL/min/1.73 m2) requires estimation of kidney damage for at least three months as defined by structural or functional abnormalities of the kidney, manifested by either:Pathological abnormalities or Markers of kidney damage (including abnormalities in the composition of the blood or urine or abnormalities in imaging tests). Lab Interpretation Abnormal (test code = 79299-5) [facility] GLUCOSE (AUTOMATED)2021-12-08 18:34:10 Test Item Value Reference Range Interpretation Comments POCT GLU (test code = 5756675752) 132 mg/dL 70-110 H Lab Interpretation (test code = Abnormal 42940-8) [facility] GLUCOSE (AUTOMATED)2021-12-08 18:34:10 Test Item Value Reference Range Interpretation Comments POCT GLU (test code = 9986986642) 132 mg/dL 70-110 H Lab Interpretation (test code = Abnormal 55151-6) [facility] GLUCOSE (AUTOMATED)2021-12-08 18:34:10 Test Item Value Reference Range Interpretation Comments POCT GLU (test code = 9047490812) 132 mg/dL 70-110 H Lab Interpretation (test code = Abnormal 93770-5) [facility] [id number] 18:17:40 Test Item Value Reference Range Interpretation Comments ABO & RH (test code A POSITIVE Performe d at [facility] = 20) Laboratory Serv [facility] [address] [place] [address] s [address]Zmhw Free: [phone] A No. [id number] IAT (test code = Negative Performed a t [facility] 1185) Laboratory [facility] [address] [place] [address] s [address]Ufxx Free: [phone] A No. [id number] [facility] [id number] 18:17:40 Test Item Value Reference Range Interpretation Comments ABO & RH (test code A POSITIVE Performe d at [facility] = 20) Laboratory [facility] [address] [place] [address] s [address]Obhp Free: [phone] A No. [id number] IAT (test code = Negative Performed a t [facility] 1185) Laboratory Serv [facility] [address] [facility] s [address]Wkop Free: [phone] A No. [id number] [facility] [id number] 18:17:40 Test Item Value Reference Range Interpretation Comments ABO & RH (test code A POSITIVE Performe d at [facility] = 20) Laboratory Serv [facility] [address] [facility] s [address]Myhl Free: [phone] A No. [id number] IAT (test code = Negative Performed a t [facility] 1185) Laboratory [facility] [address] [facility] s [address]Gjhc Free: [phone] A No. [id number] [facility] (A1C)2021-12-08 16:00:28 Test Item Value Reference Range Interpretation Comments HGB A1C (test code = 7.3 % 4-5.7 H 4548-4) SEEMA (test code = SEEMA) Reference RangesNormal: <5.7%Prediabetes: 5.7 - 6.4%Diabetes: > 6.5% Lab Interpretation (test Abnormal code = 08585-3) [facility]A1C[facility]2021-12-08 16:00:28 Test Item Value Reference Range Interpretation Comments HGB A1C (test code = 7.3 % 4-5.7 H 4548-4) SEEMA (test code = SEEMA) Reference RangesNormal: <5.7%Prediabetes: 5.7 - 6.4%Diabetes: > 6.5% Lab Interpretation (test Abnormal code = 19626-7) [facility]2021-12-08 16:00:28 Test Item Value Reference Range Interpretation Comments HGB A1C (test code = 7.3 % 4-5.7 H 4548-4) SEEMA (test code = SEEMA) Reference RangesNormal: <5.7%Prediabetes: 5.7 - 6.4%Diabetes: > 6.5% Lab Interpretation (test Abnormal code = 18533-8) [facility] with [id number] 04:32:50 Test Item Value Reference Range Interpretation Comments WBC (test code = See_Comment H [Automated 1390-2) message] The system which generated this result transmit jossue reference range : 4.20 - 10.70 10*3/?L. The reference range was not used to interpret this result as normal/abnormal . RBC (test code = See_Comment [Automated 789-8) message] The system which generated this result transmit jossue reference range : 4.26 - 5.52 10*6/?L. The reference range was not used to interpret this result as normal/abnormal . HGB (test code = 14.3 g/dL 12.2-16.4 718-7) HCT (test code = 43.4 % 38.4-49.3 4544-3) MCV (test code = 81.4 fL 81.7-95.6 L 787-2) MCH (test code = 26.8 pg 26.1-32.7 785-6) MCHC (test code = 32.9 g/dL 31.2-35 786-4) RDW-SD (test code = 38.6 fL 38.5-51.6 27413-8) RDW-CV (test code = 13.1 % 12.1-15.4 788-0) PLT (test code = See_Comment [Automated 777-3) message] The system which generated this result transmit jossue reference range : 150 - 328 10*3/ ?L. The reference range was not u sed to interpret th is result as normal/abnormal . MPV (test code = 10.3 fL 9.8-13 84868-0) NRBC/100 WBC (test See_Comment [Automat ed code = [id number]) message] The system which generated this result transmit jossue reference range : 0.0 - 10.0 /100 WBCs. The reference range was not used to interpret this result as normal/abnormal . NRBC x10^3 (test code See_Comment [Auto mated = [id number]) message] The system which generated this result transmit jossue reference range : 10*3/?L. The reference range was not used to interpret this result as normal/abnormal . GRAN MAT (NEUT) % 93.6 % (test code = 770-8) IMM GRAN % (test code 1.10 % = [id number]) LYMPH % (test code = 1.7 % 736-9) MONO % (test code = 3.5 % 5905-5) EOS % (test code = 0.0 % 713-8) BASO % (test code = 0.1 % 706-2) GRAN MAT x10^3(ANC) 32.64 10*3/uL 1.99-6.95 H (test code = [id number]) IMM GRAN x10^3 (test 0.40 10*3/uL 0-0.06 H code = [id number]) LYMPH x10^3 (test code 0.61 10*3/uL 1.09-3.23 L = 731-0) MONO x10^3 (test code 1.24 10*3/uL 0.36-1.02 H = 742-7) EOS x10^3 (test code = 0.06-0.53 L 711-2) BASO x10^3 (test code 0.04 10*3/uL 0.01-0.09 = 704-7) BANDS (test code = Increased A 4753588308) DOHLE BODIES (test Present A code = 7792-5) TOXIC CHANGES (test Present A code = 803-7) Lab Interpretation Abnormal (test code = 77403-2) [id number]14 Test Item Value Reference Range Interpretation Comments ESR (test code = See_Comment H [Automated message] [id number]) The system [employer] generated this result transmitted ref erence range: 0 - 10 m m/HR. The reference r jt was not used to interpret this result as normal/abnor mal. Lab Interpretation (test Abnormal code = 92728-9) [facility]. Metabolic Panel ([id number])2021-12-08 03:29:38 Test Item Value Reference Range Interpretation Comments NA (test code = 131 mmol/L 135-145 L [id number]) K (test code = 3.4 mmol/L 3.5-5 L 2129355513) CL (test code = 93 mmol/L 98-108 L 8371863360) CO2 TOTAL (test code = 27 mmol/L 23-31 2781525670) AGAP (test code = 2-16 9581851648) BUN (test code = 24 mg/dL 7-23 H 0112482529) GLUCOSE (test code = 194 mg/dL 70-110 H 6653120175) CREATININE (test code = 1.30 mg/dL 0.6-1.25 H 1041580210) TOTAL BILI (test code = 1.1 mg/dL 0.1-1.2 4952840613) CALCIUM (test code = 8.5 mg/dL 8.6-10.6 L 5560566244) T PROTEIN (test code = 6.3 g/dL 6.3-8.2 0139287175) ALBUMIN (test code = 3.6 g/dL 3.5-5 2114249096) ALK PHOS (test code = 97 U/L 34-122 0055216636) ALTv (test code = 40 U/L 5-50 2-6) AST(SGOT) (test code = 36 U/L 13-40 7886551917) eGFR (test code = mL/min/1.73m2 2177091565) SEEMA (test code = SEEMA) Association of Glomerular Filtration Rate (GFR) and Staging of Kidney Disease* + --+ --+ ------+| GFR (mL/min/1.73 m2) ?| With Kidney Damage ?| ?Without Kidney Damage+ --------+ --------+ +| ?>90 ?| ?Stage one ?| ? Normal ?+ ---+ ---+ -------+| ?60-89 ?| ?Stage two ?| ? Decreased GFR ? + --+ --+ ------+| ?30-59 ?| ?Stage three ?| ? Stage three ? + --+ --+ ------+| ?15-29 ?| ?Stage four ? | ? Stage four ?+ ---+ ---+ -------+| ?<15 (or dialysis) ? ?| ?Stage five ? | ? Stage five ?+ ---+ ---+ -------+ *Each stage assumes the associated GFR level has been in effect for at least three months. ?Stages 1 to 5, with or without kidney disease, indicate chronic kidney disease. Notes: Determination of stages one and two (with eGFR >59mL/min/1.73 m2) requires estimation of kidney damage for at least three months as defined by structural or functional abnormalities of the kidney, manifested by either:Pathological abnormalities or Markers of kidney damage (including abnormalities in the composition of the blood or urine or abnormalities in imaging tests). Lab Interpretation Abnormal (test code = 02938-4) [facility]"
[2021-12-21] MEDS ORDERED: ACETAMINOPHEN 500 MG TAB PO PRN (21:47)
[2021-12-21] MEDS ORDERED: IBUPROFEN 100 MG/5 ML UCUP PO PRN (21:57)
[2021-12-21] MEDS ORDERED: GABAPENTIN 100 MG CAP PO PRN (21:57)
[2021-12-21] MEDS ORDERED: GLUCAGON 1 MG/VIAL IM PRN (21:59)
[2021-12-21] MEDS ORDERED: D50W 25 GM/50 ML SYRINGE IV PRN (21:59)
[2021-12-21] MEDS ORDERED: D10W 125 ML IV PRN (22:14)
[2021-12-21] MEDS ORDERED: IBUPROFEN 400 MG TAB PO PRN (22:16)
[2021-12-21 22:58] LABS: Specific Gravity 1.014 (1.005-1.030); Urine Bilirubin NEGATIVE (Negative); Urine Blood Negative (Negative); Urine Clarity Clear (Clear); Urine Color Light-Yellow (Yellow); Urine Glucose NEGATIVE (Negative); Urine Mucus Slight /HPF (None Seen); Urine Protein NEGATIVE (Negative); Urine RBC <5 /HPF (None Seen); Urine Urobilinogen Normal (Normal)
[2021-12-22 04:30] LABS: Absolute Lymphocytes (CBC) 2.3 K/uL (0.7-4.9); Hematocrit 27.4 % (39.6-49.0); Lymphocytes % 34.5 % (15.3-44.8); MCV 82.8 fL (80-100); MPV 6.8 fL (7.6-11.3); RBC Red Blood Cell Count 3.31 M/uL (4.33-5.43)
[2021-12-22 04:44] LABS: Potassium 4.2 mmol/L (3.5-5.1)
[2021-12-22 04:50] LABS: Albumin 2.5 g/dL (3.4-5.0); Magnesium 2.2 mg/dL (1.8-2.4); Prealbumin 22.2 mg/dL (20-40)
[2021-12-22] MEDS: INSULIN -REGULAR HUMAN 50 UNIT/0.5 ML ML SQ SCH ×4 (07:30→21:00)
[2021-12-22] MEDS: APIXABAN 2.5 MG TABLET PO SCH ×2 (08:07→21:13)
[2021-12-22] MEDS: METFORMIN HCL 500 MG TAB PO SCH (08:07)
[2021-12-22] MEDS: methocarbamoL 500 MG TAB PO PRN (12:03)
--- NOTE | 2021-12-22 18:37 | R.HP ---
HISTORY AND PHYSICAL FACILITY: [facility] ENCOUNTER DATE AND TIME: 12/22/2021 18:30 (CDT) MR#: [id number] NAME ROMA MARTINEZ ADDRESS: [address] [place] [address] CITY: [place]IP [id number] PHONE: DATE OF : 1965 AGE: 56 SSN# [id number] GENDER: Male DEXTERITY Unknown dexterity MARITAL STATUS PRE-HOSPITAL LIVING SETTING 01 - Home (private home/apt. board/care, assisted living, long term, transitional living) PRE-HOSPITAL LIVING WITH Family/Relatives ENCOUNTER PHYSICIAN: Dr. Jean-Claude Mathew M.D. REFERRING DOCTOR: santos Stuart DATE OF ADMISSION: 12/21/2021 20:32 (CDT) REFERRING FACILITY [facility] HOME TYPE AND DETAILS: Type of home: single family house # of steps within the residence: 0 # of steps to enter the residence: 0 # of levels in the residence: 1 ONSET DATE: 12/10/2021 PRIMARY DIAGNOSIS-RELATED SURGERIES: Emergency Amputation of Limb(Unilateral Lower Limb Below the Knee (BK)) - performed by Mary Stuart on 12/10/2021 SECONDARY/COMORBID DIAGNOSES (TIERED): - Tier 3 Type 2 diabetes mellitus with diabetic neuropathy, unspecified (E11.40) - Non-Tiered Infection of amputation stump, unspecified extremity (T87.40) Cellulitis of right lower limb (L03.115) Tremor, unspecified (R25.1) HISTORY OF PRESENT ILLNESS (HPI): On 12/10/2021 he was admitted to [facility] and underwent emergency surgery for Z89.51 Acquired absence of left leg below knee (Amputation of Limb(Unilateral Lower Limb Below the Knee (BK))) by Mary Stuart. Pt. is a 56 yo AAM. Pre-morbidly, Pt. was independent/mod-I in Locomotion and Self-Care; and he had good Safety Awareness , Balance, Transfers Control, and Endurance. Currently, he has deficits of Locomotion, Balance, and Self-Care. Pt. is now referred to [facility] for acute in-patient rehabilitation in order to maximize patient's functional independence in activities of daily living, strength, ROM, and mobi lity. Patient has realistic goal of being discharged at assistance level 6-Jacobo to reside at Home with Fam linda/Relatives. Pt is a 56 yo male with PMH of T2DM and diverticulitis who present to hospital with sepsis of the R f oot on 12/08/21 and underwent R BKA on 12/10/21 and a R BKA revision on 12/14/21. The patient developed a BUE tremor 5 days after the amputation and as progressively gotten worst. Pt began experiencing neur opathy in his R left and was prescribed gabapentin which has decreased his pain at this time. Per OT report pt has decreased independence with ADLs and continues to struggle with using stairs.PT indicat es that pt has decline in gait and has balance deficit. Decreased stair/step negotiation, strength an d endurance also noted in PT report. Prior to onset pt was independent in ambulation and ADLs. Due to the decline in the patients condition he is not currently safe to remain in his current living arrangement due to reductions in balance, strength, endurance, and an inability to independently perform the necessary activities of daily living and self-care required. Pt is at risk for skin breakdown, DVT, pain, falls, stroke and infections. Our goal is for the patient to become stronger in order for him to safely return home and live independently. Patient would most directly benefit from aggressive 3 hours of daily therapy split between physical therapy and occupational therapy as well as speech therapy if warranted in the acute inpatient rehab setting.He is medically stable with relatively stable labs. He will require 24 hour nursing, doctor supervision and oversight while receiving condition and PHM. The patient is reasonably expected to participate in 3 hours of therapy a day/15 hours per week and receive care with an intensive interdisciplinary approach. COVID-19 screening performed; Patient denies new onset of fever, cough, difficulty breathing, sore throat, body aches and non-allergy nasal congestion in the past 24 hours. Patient denies travel outside of [place] in the past 14 days. Patient denies any contact with someone who has a confirmed diagnosis of or is under investigation for COVID-19 in the past 14 days. MEDICATION ALLERGIES: No Known Drug Allergies (NKDA) ENVIRONMENTAL ALLERGIES: - Substance Allergies None Known - Other Allergies None Known PAST MEDICAL HISTORY: Cellulitis of right lower limb (L03.115) Infection of amputation stump, unspecified extremity (T87.40) Tremor, unspecified (R25.1) Type 2 diabetes mellitus with diabetic neuropathy, unspecified (E11.40) SOCIAL HISTORY: - Home Living Family/Relatives REVIEW OF SYSTEMS: - Gen No Chills Fatigue No Fever - Eyes No Double Vision No itchiness - ENMT No Difficulty Swallowing - CVS No Chest Discomfort No Chest Pain Fatigue No Weight Gain - Resp No Cough No Shortness of Breath - GI Continent No Abdominal Pain No Constipation No Diarrhea - Continent No Kidney Pain No Painful Urination No Urinary Urgency - MSK No Joint Pain Muscle Cramps Stiffness - Skin No Itching No Rash No Suspicious Lesions - Neuro Coordination Difficulty No Difficulty with Concentration No Memory Loss No Seizures Weakness - Psych No Anxiety No Depression No HIV Exposure No Persistent Infections No Seasonal Allergies - Endo No Cold/Heat Intolerance No Excessive Hunger No Excessive Thirst No Excessive Urination PHYSICAL EXAM - Gen Alert and awake Lying in bed No apparent distress Oriented to: person, time, and place - Skin No skin breakdown. Normacephalic - Eyes No abnormalities - ENMT No abnormalities - Neck No abnormalities - CVS RRR - Chest No abnormalities - Abd + bowel sounds - GI obese abdomen Deferred - No abnormalities - Ext Right BKA stump with good hemostasis. - MSK 4+/5 weakness in proximal right lower extremity. - Neuro 4+/5 weakness in proximal right lower extremity. - OTHER Reviewed by Dr. Jean-Claude Mathew VITAL SIGNS Temperature: 97.6 F SBP/DBP: 125/74 Pulse: 83 Resp: 16 NURSING: - Shower allowing shower - Lab Results blood Sugar Check ACHS - Skin care per protocol PRECAUTIONS: - Weight Bearing Precaution NWB right LE ACTIVITIES OOB only with supervision QI SCORES: - Self-Care A. Eating 06-Independent B. Oral hygiene 06-Independent C. Toileting hygiene 06-Independent E. Shower/bathe self 03-Partial/moderate assistance F. Upper body dressing 06-Independent G. Lower body dressing 06-Independent H. Putting on/taking off footwear 06-Independent - Mobility A. Roll left and right 06-Independent B. Sit to lying 06-Independent C. Lying to sitting on side of bed 06-Independent D. Sit to stand 04-Supervision or touching assistance E. Chair/loa-dx-xitit transfer 04-Supervision or touching assistance F. Toilet transfer 04-Supervision or touching assistance G. Car transfer 88-Not attempted due to medical condition or safety concerns I. Walk 10 feet 03-Partial/moderate assistance J. Walk 50 feet with two turns 03-Partial/moderate assistance K. Walk 150 feet 88-Not attempted due to medical condition or safety concerns L. Walking 10 feet on uneven surfaces 88-Not attempted due to medical condition or safety concerns M. 1 step (curb) 88-Not attempted due to medical condition or safety concerns N. 4 steps 88-Not attempted due to medical condition or safety concerns O. 12 steps 88-Not attempted due to medical condition or safety concerns P. Picking up object 88-Not attempted due to medical condition or safety concerns R. Wheel 50 feet with two turns 09-Not applicable S. Wheel 150 feet 09-Not applicable - Bladder and Bowel Bladder continence 0-Always continent Bowel continence 0-Always continent CURRENT FUNC. 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 is a 56 yo AAM.Pre-morbidly, Pt. was independent/mod-I in Locomotion and Self-Care; and he prince d good Safety Awareness, Balance, Transfers Control, and Endurance.Currently, he has deficits of [place] motion, Balance, and Self-Care.Pt. is now referred to [facility] for acute in- patient rehabilitation in order to maximize patient's functional independence in activities of daily living, strength, ROM, and mobility.- Rehab Goal Patient has realistic goal of being discharged at assistance level 6-Jacobo to reside at Home with Fam linda/Relatives. Pt is a 56 yo male with PMH of T2DM and diverticulitis who present to hospital with sepsis of the R f oot on 12/08/21 and underwent R BKA on 12/10/21 and a R BKA revision on 12/14/21. The patient developed a BUE tremor 5 days after the amputation and as progressively gotten worst. Pt began experiencing neur opathy in his R left and was prescribed gabapentin which has decreased his pain at this time. Per OT report pt has decreased independence with ADLs and continues to struggle with using stairs.PT indicat es that pt has decline in gait and has balance deficit. Decreased stair/step negotiation, strength an d endurance also noted in PT report. Prior to onset pt was independent in ambulation and ADLs. Due to the decline in the patients condition he is not currently safe to remain in his current living arrangement due to reductions in balance, strength, endurance, and an inability to independently perform the necessary activities of daily living and self-care required. Pt is at risk for skin breakdown, DVT, pain, falls, stroke and infections. Our goal is for the patient to become stronger in order for him to safely return home and live independently. Patient would most directly benefit from aggressive 3 hours of daily therapy split between physical therapy and occupational therapy as well as speech therapy if warranted in the acute inpatient rehab setting.He is medically stable with relatively stable labs. He will require 24 hour nursing, doctor supervision and oversight while receiving condition and PHM. The patient is reasonably expected to participate in 3 hours of therapy a day/15 hours per week and receive care with an intensive interdisciplinary approach. COVID-19 screening performed; Patient denies new onset of fever, cough, difficulty breathing, sore throat, body aches and non-allergy nasal congestion in the past 24 hours. Patient denies travel outside of [place] in the past 14 days. Patient denies any contact with someone who has a confirmed diagnosis of or is under investigation for COVID-19 in the past 14 days.REHAB PLAN: - Physical Therapy Need for home safety evaluation - to improve, our physical therapists will perform initial evaluation of pt's status upon admission and devise an individualized program for Home Evaluation Need in caregiver upon discharge - to improve, our physical therapists will perform initial evaluatio n of pt's status upon admission and devise an individualized program for Caregiver Training New precaution - to improve, our physical therapists will perform initial evaluation of pt's status u luz admission and devise an individualized program for Patient precaution education Poor balance - to improve, our physical therapists will perform initial evaluation of pt's status upo n admission and devise an individualized program for Balance Training Poor endurance - to improve, our physical therapists will perform initial evaluation of pt's status u luz admission and devise an individualized program for Endurance Training Achieving independence - to improve, our physical therapists will perform initial evaluation of pt's status upon admission and devise an individualized program for Community Reintegration Activities - Occupational Therapy ADL deficits - to improve, our occupation therapists will perform initial evaluation of pt's status u luz admission and devise an individualized program for Bathing, Bed mobility, Community Reintegration , Cooking, Dressing, Eating, Fine Motor Skills, Grooming, Homemaking, Kitchen Mobility, Laundry, Yazmin ent Education, Safety Awareness, Splinting - Positioning, Transfers(Toilet, Tub, Shower), and Wheel C hair Management Need for animal care technician - to improve, our occupation therapists will perform initial evaluation of pt's s tatus upon admission and devise an individualized program for Caregiver Training MEDICAL PLAN: - Diet Type Start Regular - Diet - Liquid Texture Start Regular - Tube Feed Start N/A - Lab Results blood Sugar Check ACHS - Weight Bearing Precaution NWB right LE - Consult Perform Consult Certified Prosthetic for prosthesis construction - Skin care per protocol - Other See attached MAR (Medication Administration Record) - N/A Perform Consult Certified Prosthetic for prosthesis construction - Diet - Solid Texture Regular - Shower shower DISCHARGE PLAN: - Estimated Length of Stay (days) 11. - Consensus on plan Discharge plan has been discussed with primary caregiver. Patient/Family is in agreement with the cordell n. Primary caregiver is in agreement with the plan. - Patient/Family Goals Return home independently. - Planned Living Setting Upon Discharge Home, to live with Family/Relatives. Transitional Living. SIGNATURE PANEL: (CDT)
--- NOTE | 2021-12-22 18:41 | PAPE ---
POST ADMISSION PHYSICIAN EVALUATION PATIENT: [facility] MR# [id number] REFERRING DOCTOR santos Stuart EVALUATION DATE AND TIME 12/22/2021 18:36 (CDT) NAME ROMA MARTINEZ DATE OF 1965 AGE 56 PHONE SSN# [id number] GENDER male EVALUATING PHYSICIAN Dr. Jean-Claude Mathew M.D. ADMISSION DIAGNOSIS: Z89.51 Acquired absence of right leg below knee ONSET DATE 12/10/2021 SECONDARY/COMORBID DIAGNOSES TIERED: - Tier 3 Type 2 diabetes mellitus with diabetic neuropathy, unspecified (E11.40) - Non-Tiered Infection of amputation stump, unspecified extremity (T87.40) Cellulitis of right lower limb (L03.115) Tremor, unspecified (R25.1) POST-ADMISSION FUNCTIONAL/MEDICAL STATUS: - Bladder Same accident frequency: 7-Ind - No accidents in the past 7 days - Bowel Same accident frequency: 7-Ind - No accidents in the past 7 days - Walking Same score based on distance walked: 0(N/A) - Wheelchair Same score based on distance traveled: 0(N/A) STATUS CHANGE EVALUATION: No change in Functional or Medical Status is identified compared with Pre-Admission screening. PATIENT NEEDS CLOSE MEDICAL SUPERVISION BY A REHABILITATION PHYSICIAN FOR: Coordination of Treatment Team Diabetes Management Medical and Co-Morbidity Management Post-Op Complications Wound Care PATIENT REQUIRES 24X7 REHAB NURSING FOR MEDICAL AND FUNCTIONAL MGT. OF THE FOLLOWING DEFICITS: Disease Management Medication Management Patient requires 24x7 Rehabilitation Nursing for: Pain Issues, Identifying and preventing risk factor s, Monitoring and reporting current medical conditions, Assisting with ambulation and transfer, Esmer ting with all ADL-s, Teaching patients about disease process and medications, Family teaching, Provid ing safe environment, Bowel and Bladder Issues, Skin Integrity, and Medication Management Patient/Family Education Providing Safe Environment Skin Integrity PATIENT REQUIRES INTENSIVE, COORDINATED INTERDISCIPLINARY APPROACH TO REHAB: Arranging Home Equipment/Services Discharge Planning Family Intervention/Training Patient needs Dietary and Nutrition Services for: Adequate Nutrition, Nutritional Supplements, and Nu tritional Education Patient needs Focuser and/or Case Management for: Discharge Planning, Arranging Home Equipmen t or Services, and Family Interventions Focuser/Case Management LIST OF IDENTIFIED AND POTENTIAL PROBLEMS: Alteration in leisure activities Bladder, Incontinence Bowel, Incontinence Diabetes, Hyperglycemia/hypoglycemia Issues Infection, Actual or Potential Mobility Impaired Pain, Alteration in Comfort Self Care Deficit Skin Integrity, Actual or Potential Urinary Tract Infection (UTI), Actual or Potential RISK FOR COMPLICATIONS - DVT Active and Passive ROM exercises. Administer medications per MD order. Assist patient with frequent p osition changes. Elevate BLE. - Skin Breakdown Encourage ambulation as tolerated. Repositioning q 2 hours. Use of pillows or foam wedges while in be d. - Pain Anticipate the need for pain medication for optimal pain managment. Assess pt for pain and Administer prescribed pain medication as needed. Educate patient on relaxation and deep breathing techniques. - Falls Assess for medication side effects. Maintain call light within patient reach for easy access to Ener[employer] ng assistance. Provide assistance getting out of bed and with ambulation. Provide assistive devices. - Infection Administer antibiotics as indicated. Provide regular wound care. Assess/Monitor for s/s of infection and notify MD. Monitor pt labs. INTERVENTIONS - BKA Administer antibiotics as indicated. Assist with ambulation and transfers. Assist with specified ROM exercises for both the affected and unaffected limbs. Maintain patency and routinely empty drainage d evice and monitor wound dressings. Monitor pt labs. Monitor pt v/s and for s/s of infection. Perform periodic neurovascular assessments. Aggressive PT/OT. - Sepsis Administer antibiotics as indicated. Assess/ Monitor for increased s/s infection. Assess/ Monitor pt v/s regularly. Monitor pt labs. - Type 2 Diabetes Assess LE for temperature, pulses, color, and sensation. Assess for signs of hyperglycemia. Monitor b lood glucose and effectiveness of medications/Insulin. Monitor pt BP. Weight daily. Promote proper di et. - Pain Anticipate the need for pain medication for optimal pain managment. Assess/Monitor pt pain and treat with prescribed pain medications. Educate pt on relaxation techniques and deep breathing. PATIENT COULD BE AT RISK FOR COMPLICATIONS FROM ADVERSE MEDICAL CONDITIONS DUE TO HIS/HER COMORBIDITI ES AND THE RIGORS OF THE INTENSIVE REHABILLITATION PROGRAM. METHODS OR INTERVENTIONS TO AVOID COMPLIC ATIONS INCLUDE: - Bleeding Assess lab values and manage abnormalities. Nursing to teach precautions for anti-coagulation therapy . Wound to be assessed every shift. - Infection Clinical staff to assess and manage the signs and symptoms of infection including fever, redness, war mth, etc. - Urinary Tract Infection - Falls Patient will be evaluated for Fall Precautions and will be placed on Fall Precautions as indicated pe r protocol. - Skin Breakdown Nursing will assess skin daily using assessment tool and will place on Skin Breakdown Precautions as indicated per protocol. - Pain Clinical staff may employ non-medication methods such as massage, distraction, decrease stimulus, etc . as needed. Clinical staff will assess patient's pain level every shift per protocol to assess and e nsure pain management effectiveness. Medications will be given and the pain level re-assessed. PRELIMINARY PLAN OF CARE: - Physical Therapy Patient needs Physical Therapy for a daily minimum of 1.5 hours at least 5 out of 7 days, to improve: Mobility, Strengthening, Transfers, Stretching, ROM, Endurance, Ability to manage stairs, Gait, and Balance. - Rehabilitation Nursing Patient requires 24x7 Rehabilitation Nursing for: Pain Issues, Identifying and preventing risk factor s, Monitoring and reporting current medical conditions, Assisting with ambulation and transfer, Esmer ting with all ADL-s, Teaching patients about disease process and medications, Family teaching, Provid ing safe environment, Bowel and Bladder Issues, Skin Integrity, and Medication Management. Patient needs Focuser and/or Case Management for: Discharge Planning, Arranging Home Equipmen t or Services, and Family Interventions. - Dietary and Nutrition Services Patient needs Dietary and Nutrition Services for: Adequate Nutrition, Nutritional Supplements, and Nu tritional Education. - Occupational Therapy Patient needs Occupational Therapy for a daily minimum of 1.5 hours at least 5 out of 7 days, to impr ove Activities of Daily Living, including: Eating, Grooming, Bathing, Dressing, Toileting, Toilet Tra nsfers, Community Reintegration, Higher functional activities, Adaptive Equipment, Splinting, Househo ld Tasks, and Other activities as determined. QI SCORES: - Self-Care A. Eating 06-Independent B. Oral hygiene 06-Independent C. Toileting hygiene 06-Independent E. Shower/bathe self 03-Partial/moderate assistance F. Upper body dressing 06-Independent G. Lower body dressing 06-Independent H. Putting on/taking off footwear 06-Independent - Mobility A. Roll left and right 06-Independent B. Sit to lying 06-Independent C. Lying to sitting on side of bed 06-Independent D. Sit to stand 04-Supervision or touching assistance E. Chair/[id number]-vpfpf transfer 04-Supervision or touching assistance F. Toilet transfer 04-Supervision or touching assistance G. Car transfer 88-Not attempted due to medical condition or safety concerns I. Walk 10 feet 03-Partial/moderate assistance J. Walk 50 feet with two turns 03-Partial/moderate assistance K. Walk 150 feet 88-Not attempted due to medical condition or safety concerns L. Walking 10 feet on uneven surfaces 88-Not attempted due to medical condition or safety concerns M. 1 step (curb) 88-Not attempted due to medical condition or safety concerns N. 4 steps 88-Not attempted due to medical condition or safety concerns O. 12 steps 88-Not attempted due to medical condition or safety concerns P. Picking up object 88-Not attempted due to medical condition or safety concerns R. Wheel 50 feet with two turns 09-Not applicable S. Wheel 150 feet 09-Not applicable - Bladder and Bowel Bladder continence 0-Always continent Bowel continence 0-Always continent POTENTIAL FUNCTIONAL GOALS FOR PATIENT TO ACHIEVE BY DISCHARGE: - Safety Precaution Patient will remain free from falls or injury at time of discharge. - Bed Mobility Patient will perform bed mobility at 4-Jeanie level of assistance. - Transfers Patient will complete transfers from bed to chair at 4-Jeanie level of assistance. - Mobility Patient will ambulate 150 ft with 4-Jeanie level of assistance with RW. PATIENT REHAB POTENTIAL Izabel MARTINEZ is able and expected to receive 3 hours of individualized therapy daily on at least 5 of jennifer ry 7 days Izabel POLLARDs prognosis for significant practical improvement within a reasonable period of time appears Good Expected level of measurable improvement will be of a practical value to Izabel MARTINEZ's functional capaci ty or adaptations to impairments Has a viable Discharge Plan Medically appropriate; condition is sufficiently stable to participate in intensive rehab program DISCHARGE PLAN: - Estimated Length of Stay (days) 11. - Consensus on plan Discharge plan has been discussed with primary caregiver. Patient/Family is in agreement with the cordell n. Primary caregiver is in agreement with the plan. - Patient/Family Goals Return home independently. - Planned Living Setting Upon Discharge Home, to live with Family/Relatives. Transitional Living. CONCLUSION ON REHABILITATION NECESSITY: I have evaluated patient's pre-admission functional status and, comparing it to the patient's post-ad mission functional status now, I conclude that the pre-admission assessment was accurate. Patient's c ondition on admission supports the medical necessity of admission to [facility]. It is safe to proceed with patient's therapy program. SIGNATURE PANEL: (CDT)
[2021-12-23] MEDS: INSULIN -REGULAR HUMAN 50 UNIT/0.5 ML ML SQ SCH ×4 (07:21→20:14)
[2021-12-23] MEDS: APIXABAN 2.5 MG TABLET PO SCH ×2 (07:30→20:14)
[2021-12-23] MEDS: METFORMIN HCL 500 MG TAB PO SCH (08:24)
--- NOTE | 2021-12-23 09:50 | P.RH.PN ---
Estimated Length of Stay: 11 Expected Discharge Date: 01/01/22 Discharge Disposition Plan: Home Family Support: Yes Fpc Goal: Mobility, Transfers, Self Care Vital Signs: Last Vital Signs Temp 97.2 F 12/23/21 07:31 Pulse 81 12/23/21 07:31 Resp 16 12/23/21 07:31 BP 124/78 12/23/21 07:31 Pulse Ox 97 12/23/21 07:31 Laboratory: Laboratory Last Values WBC 6.50 K/uL (4.3-10.9) 12/22/21 04:06 RBC 3.31 M/uL (4.33-5.43) L 12/22/21 04:06 Hgb 9.2 g/dL (13.6-17.9) L 12/22/21 04:06 Hct 27.4 % (39.6-49.0) L 12/22/21 04:06 MCV 82.8 fL (80-100) 12/22/21 04:06 MCH 27.7 pg (27.0-35.0) 12/22/21 04:06 MCHC 33.5 g/dL (32.0-36.0) 12/22/21 04:06 RDW 14.3 % (12.1-15.2) 12/22/21 04:06 Plt Count 508 K/uL (152-406) H 12/22/21 04:06 MPV 6.8 fL (7.6-11.3) L 12/22/21 04:06 Neutrophils % 57.6 % (41.7-73.7) 12/22/21 04:06 Lymphocytes % 34.5 % (15.3-44.8) 12/22/21 04:06 Monocytes % 6.7 % (3.3-12.3) 12/22/21 04:06 Eosinophils % 0.6 % (0-4.4) 12/22/21 04:06 Basophils % 0.6 % (0-1.3) 12/22/21 04:06 Absolute Neutrophils 3.8 K/uL (1.8-8.0) 12/22/21 04:06 Absolute Lymphocytes 2.3 K/uL (0.7-4.9) 12/22/21 04:06 Absolute Monocytes 0.4 K/uL (0.1-1.3) 12/22/21 04:06 Absolute Eosinophils 0.0 K/uL (0-0.5) 12/22/21 04:06 Absolute Basophils 0.0 K/uL (0-0.5) 12/22/21 04:06 Sodium 137 mmol/L (136-145) 12/22/21 04:06 Potassium 4.2 mmol/L (3.5-5.1) 12/22/21 04:06 Chloride 102 mmol/L (98-107) 12/22/21 04:06 Carbon Dioxide 31 mmol/L (21-32) 12/22/21 04:06 Anion Gap 8.2 mEq/L (5.0-15.0) 12/22/21 04:06 BUN 11 mg/dL (7-18) 12/22/21 04:06 Creatinine 1.33 mg/dL (0.55-1.3) H 12/22/21 04:06 Est GFR (CKD-EPI) 63 ml/min (=/>90) L 12/22/21 04:06 Glucose 118 mg/dL (74-106) H 12/22/21 04:06 POC Glucose 117 mg/dL (65-120) 12/23/21 07:09 Calcium 9.0 mg/dL (8.5-10.1) 12/22/21 04:06 Magnesium 2.2 mg/dL (1.8-2.4) 12/22/21 04:06 Albumin 2.5 g/dL (3.4-5.0) L 12/22/21 04:06 Prealbumin 22.2 mg/dL (20-40) 12/22/21 04:06 Urine Color Light-yellow (Yellow) 12/21/21 22:00 Urine Clarity Clear (Clear) 12/21/21 22:00 Urine pH 5.0 (5.0-7.0) 12/21/21 22:00 Ur Specific [place] 1.014 (1.005-1.030) 12/21/21 22:00 Glucose (UA)(Auto) Negative (Negative) 12/21/21 22:00 Urine Ketones Negative (Negative) 12/21/21 22:00 Urine Blood Negative (Negative) 12/21/21 22:00 Urine Nitrite Negative (Negative) 12/21/21 22:00 Urine Bilirubin Negative (Negative) 12/21/21 22:00 Urine Urobilinogen Normal (Normal) 12/21/21 22:00 Ur Leukocyte Esterase Negative Erika/uL (Negative) 12/21/21 22:00 Urine RBC <5 /HPF (None Seen) 12/21/21 22:00 Urine WBC <5 /HPF (<5) 12/21/21 22:00 Ur Squamous Epith Cells <5 /HPF (None Seen) 12/21/21 22:00 U Non-Squamous Epi Cells <5 /HPF (None Seen) 12/21/21 22:00 Urine Mucus Slight /HPF (None Seen) 12/21/21 22:00 Urine Total Protein Negative (Negative) 12/21/21 22:00 SARS-CoV-2 Rap RNA(RT-PCR) Negative (NEGATIVE) 12/21/21 21:45 Weight: 262 lb Wound Present: No Closed Surgical Incision Present: Yes Negative Pressure Wound Therapy Present: No Physician Update: Labs reviewed and are stable. Ambulated 150' CGA, up and down 5 steps min assistance. Bed mobility CGA, Did right stump exercises. Doing well with occupational therapy at min assist. Upper body dressing is at set up. His is very help full. Functional Improvement: Pt is moving well. He is quick to learn. He will benefit from continued education and exercises to prevent R hip/knee flexion contracture in preparation for prosthesis. Summary: Patient's care plan and care home goals have been reviewed and revised as necessary. Please see the Rehabilitation Signature page for all necessary signatures.
[2021-12-24] MEDS: INSULIN -REGULAR HUMAN 50 UNIT/0.5 ML ML SQ SCH ×4 (07:30→19:46)
[2021-12-24] MEDS: APIXABAN 2.5 MG TABLET PO SCH ×2 (08:06→19:38)
[2021-12-24] MEDS: METFORMIN HCL 500 MG TAB PO SCH (08:06)
[2021-12-25] MEDS: INSULIN -REGULAR HUMAN 50 UNIT/0.5 ML ML SQ SCH ×4 (07:30→19:41)
[2021-12-25] MEDS: METFORMIN HCL 500 MG TAB PO SCH (07:44)
[2021-12-25] MEDS: FERROUS SULFATE 325 MG TAB PO SCH (07:44)
[2021-12-25] MEDS: APIXABAN 2.5 MG TABLET PO SCH ×2 (07:44→19:41)
[2021-12-25] MEDS ORDERED: DOCUSATE NA/SENNA CONC 1 TAB PO PRN (16:13)
[2021-12-26] MEDS: INSULIN -REGULAR HUMAN 50 UNIT/0.5 ML ML SQ SCH ×4 (07:30→20:48)
[2021-12-26] MEDS: FERROUS SULFATE 325 MG TAB PO SCH (07:39)
[2021-12-26] MEDS: APIXABAN 2.5 MG TABLET PO SCH ×2 (07:39→20:51)
[2021-12-26] MEDS: METFORMIN HCL 500 MG TAB PO SCH (07:39)
[2021-12-26] MEDS: methocarbamoL 500 MG TAB PO PRN (09:15)
--- NOTE | 2021-12-26 17:29 | R.PN ---
PROGRESS NOTES ENCOUNTER DATE AND TIME: 12/26/2021 17:24 (CDT) NAME ROMA MARTINEZ DATE OF : 1965 DATE OF ADMISSION: 12/21/2021 20:32 (CDT) Z89.51 Acquired absence of right leg below kneeCHIEF COMPLAINT: Right BKA, debility SUBJECTIVE: Pt denied any Shortness of Breath. Pt denied any depression. WBC 6.5, Hgb 9.2, glucose 96 to 115, UA is normal. Covid-19 test is negative. Ambulated 440' with SBA using a rolling walker. Self-propelled wheelchair 500' with SBA. VITAL SIGNS Temperature: 97.5 F SBP/DBP: 122/81 Pulse: 92 Resp: 16 MEDICATION ALLERGIES: No Known Drug Allergies (NKDA) ENVIRONMENTAL ALLERGIES: - Substance Allergies None Known - Other Allergies None Known CONSULT: Perform Consult Certified Prosthetic for prosthesis construction NURSING: - Shower allowing shower - Lab Results blood Sugar Check ACHS - Skin care per protocol PRECAUTIONS: - Weight Bearing Precaution NWB right LE ACTIVITIES OOB only with supervision THERAPIES: - Orthotics/Prosthetics Evaluate and Treat. Prosthetic Evaluation. - Dietary and Nutrition Adequate Nutrition. Nutritional Education. Nutritional Supplements. - Occupational Therapy Cognitive Retraining. Patient needs Occupational Therapy for a daily minimum of 1.5 hours at least 5 out of 7 days, to improve Activities of Daily Living, including: Eating, Grooming, Bathing, Dressing, Toileting, Toilet Transfers, Community Reintegration, Higher functional activities, Adaptive Equipme nt, Splinting, Household Tasks, and Other activities as determined. Visual Perceptual Training. - Physical Therapy Patient needs Physical Therapy for a daily minimum of 1.5 hours at least 5 out of 7 days, to improve: Mobility, Strengthening, Transfers, Stretching, ROM, Endurance, Ability to manage stairs, Gait, and Balance. PHYSICAL EXAM - Gen Alert and awake Lying in bed No apparent distress Oriented to: person, time, and place - Skin No skin breakdown. Normacephalic - Eyes No abnormalities - ENMT No abnormalities - Neck No abnormalities - CVS RRR - Chest No abnormalities - Abd + bowel sounds - GI obese abdomen Deferred - No abnormalities - Ext Right BKA stump with good hemostasis. - MSK 4+/5 weakness in proximal right lower extremity. - Neuro 4+/5 weakness in proximal right lower extremity. - OTHER Reviewed by Dr. Jean-Claude Mathew ASSESSMENT: [12/22/2021 18:43 (CDT), by Dr. Jean-Claude Mathew]On 12/10/2021 he was admitted to [facility] and underwent emergency surgery for Z89.51 Acquired absence of right leg below knee (Amputation of Limb(Unilateral Lower Limb Below the Knee (BK))) by Edie Stuart.On 12/10/2021 he was admitted to [facility] and unde [facility] emergency surgery for Z89.51 Acquired absence of right leg below knee (Amputation of Limb(Unil ateral Lower Limb Below the Knee (BK))) by Edie Stuart.Pt. is a 56 yo AAM.Pre-morbidly, Pt. was independent/mod-I in Locomotion and Self-Care; and he had good Safety Awareness, Balance, Transfers Control, and Endurance.Currently, he has deficits of Locomotion, Balance, and Self-Care.Pt. is now re ferred to [facility] for acute in-patient rehabilitation in order to maximize patient's functional independence in activities of daily living, strength, ROM, and mobility.- Rehab Goal Patient has realistic goal of being discharged at assistance level 6-Jacobo to reside at Home with Fam linda/Relatives. MDM/PLAN: - Physical Therapy Need for home safety evaluation - to improve, our physical therapists will perform initial evaluatio n of pt's status upon admission and devise an individualized program for Home Evaluation Need in caregiver upon discharge - to improve, our physical therapists will perform initial evaluati on of pt's status upon admission and devise an individualized program for Caregiver Training New precaution - to improve, our physical therapists will perform initial evaluation of pt's status upon admission and devise an individualized program for Patient precaution education Poor balance - to improve, our physical therapists will perform initial evaluation of pt's status up on admission and devise an individualized program for Balance Training Poor endurance - to improve, our physical therapists will perform initial evaluation of pt's status upon admission and devise an individualized program for Endurance Training Achieving independence - to improve, our physical therapists will perform initial evaluation of pt's status upon admission and devise an individualized program for Community Reintegration Activities - Occupational Therapy ADL deficits - to improve, our occupation therapists will perform initial evaluation of pt's status upon admission and devise an individualized program for Bathing, Bed mobility, Community Reintegratio n, Cooking, Dressing, Eating, Fine Motor Skills, Grooming, Homemaking, Kitchen Mobility, Laundry, Pat ient Education, Safety Awareness, Splinting - Positioning, Transfers(Toilet, Tub, Shower), and Wheel Chair Management Need for skin care instructor - to improve, our occupation therapists will perform initial evaluation of pt's status upon admission and devise an individualized program for Caregiver Training - Other See attached MAR (Medication Administration Record) - Diet Type Continue Regular - Diet - Liquid Texture Continue Regular - Tube Feed Continue N/A - Lab Results blood Sugar Check ACHS - Weight Bearing Precaution NWB right LE - Consult Perform Consult Certified Prosthetic for prosthesis construction - Skin care per protocol - N/A Perform Consult Certified Prosthetic for prosthesis construction - Diet - Solid Texture Continue Regular - Shower allowing shower FUNCTIONAL STATUS: UPDATED AT WEEKLY TEAM CONFERENCE - Bladder Same accident frequency: 7-Ind - No accidents in the past 7 days - Bowel Same accident frequency: 7-Ind - No accidents in the past 7 days - Walking Same score based on distance walked: 0(N/A) - Wheelchair Same score based on distance traveled: 0(N/A) FUNCTIONAL STATUS: - Self-Care A. Eating Ind B. Grooming Ind C. Bathing Jeanie D. Dressing - Upper Jeanie E. Dressing - Lower modA F. Toileting sup - Sphincter Control G. Bladder control Ind H. Bowel control Ind - Transfers Control I. Bed/Chair/Wheelchair Jeanie J. Toilet Jeanie K. Tub/Shower modA - Locomotion L. Walk/Wheelchair (B) Jeanie M. Stairs maxA - Communication N. Comprehension (B) Ind O. Expression (B) Ind - Social Cognition P. Social Interaction Ind Q. Problem Solving Ind R. Memory Ind - Endurance Good - Balance Good - Safety Awareness Good QI SCORES: - Self-Care A. Eating 06-Independent B. Oral hygiene 06-Independent C. Toileting hygiene 06-Independent E. Shower/bathe self 03-Partial/moderate assistance F. Upper body dressing 06-Independent G. Lower body dressing 06-Independent H. Putting on/taking off footwear 06-Independent - Mobility A. Roll left and right 06-Independent B. Sit to lying 06-Independent C. Lying to sitting on side of bed 06-Independent D. Sit to stand 04-Supervision or touching assistance E. Chair/jir-xv-onlbu transfer 04-Supervision or touching assistance F. Toilet transfer 04-Supervision or touching assistance G. Car transfer 88-Not attempted due to medical condition or safety concerns I. Walk 10 feet 03-Partial/moderate assistance J. Walk 50 feet with two turns 03-Partial/moderate assistance K. Walk 150 feet 88-Not attempted due to medical condition or safety concerns L. Walking 10 feet on uneven surfaces 88-Not attempted due to medical condition or safety concerns M. 1 step (curb) 88-Not attempted due to medical condition or safety concerns N. 4 steps 88-Not attempted due to medical condition or safety concerns O. 12 steps 88-Not attempted due to medical condition or safety concerns P. Picking up object 88-Not attempted due to medical condition or safety concerns R. Wheel 50 feet with two turns 09-Not applicable S. Wheel 150 feet 09-Not applicable - Bladder and Bowel Bladder continence 0-Always continent Bowel continence 0-Always continent CURRENT FUNC. DEFICITS: Self-Care and Mobility SIGNATURE PANEL: (CDT)
[2021-12-27] MEDS: INSULIN -REGULAR HUMAN 50 UNIT/0.5 ML ML SQ SCH ×3 (07:16→20:00)
[2021-12-27] MEDS: FERROUS SULFATE 325 MG TAB PO SCH (08:15)
[2021-12-27] MEDS: APIXABAN 2.5 MG TABLET PO SCH ×2 (08:15→19:41)
[2021-12-27] MEDS: METFORMIN HCL 500 MG TAB PO SCH (08:16)
[2021-12-27] MEDS ORDERED: ACETAMINOPHEN 500 MG TAB PO PRN (08:18)
--- NOTE | 2021-12-27 18:04 | R.PN ---
PROGRESS NOTES ENCOUNTER DATE AND TIME: 12/27/2021 18:00 (CDT) NAME ROMA MARTINEZ DATE OF : 1965 DATE OF ADMISSION: 12/21/2021 20:32 (CDT) Z89.51 Acquired absence of right leg below kneeCHIEF COMPLAINT: Right BKA, debility SUBJECTIVE: Pt denied any Shortness of Breath. Pt denied any depression. WBC 6.5, Hgb 9.2, glucose 96 to 125, UA is normal. Covid-19 test is negative. Ambulated 440' with SBA using a rolling walker. Self-propelled wheelchair 1000' with modified independence. VITAL SIGNS Temperature: 97.7 F SBP/DBP: 124/81 Pulse: 87 Resp: 16 MEDICATION ALLERGIES: No Known Drug Allergies (NKDA) ENVIRONMENTAL ALLERGIES: - Substance Allergies None Known - Other Allergies None Known CONSULT: Perform Consult Certified Prosthetic for prosthesis construction NURSING: - Shower allowing shower - Lab Results blood Sugar Check ACHS - Skin care per protocol PRECAUTIONS: - Weight Bearing Precaution NWB right LE ACTIVITIES OOB only with supervision THERAPIES: - Orthotics/Prosthetics Evaluate and Treat. Prosthetic Evaluation. - Dietary and Nutrition Adequate Nutrition. Nutritional Education. Nutritional Supplements. - Occupational Therapy Cognitive Retraining. Patient needs Occupational Therapy for a daily minimum of 1.5 hours at least 5 out of 7 days, to improve Activities of Daily Living, including: Eating, Grooming, Bathing, Dressing, Toileting, Toilet Transfers, Community Reintegration, Higher functional activities, Adaptive Equipme nt, Splinting, Household Tasks, and Other activities as determined. Visual Perceptual Training. - Physical Therapy Patient needs Physical Therapy for a daily minimum of 1.5 hours at least 5 out of 7 days, to improve: Mobility, Strengthening, Transfers, Stretching, ROM, Endurance, Ability to manage stairs, Gait, and Balance. PHYSICAL EXAM - Gen Alert and awake Lying in bed No apparent distress Oriented to: person, time, and place - Skin No skin breakdown. Normacephalic - Eyes No abnormalities - ENMT No abnormalities - Neck No abnormalities - CVS RRR - Chest No abnormalities - Abd + bowel sounds - GI obese abdomen Deferred - No abnormalities - Ext Right BKA stump with good hemostasis. - MSK 4+/5 weakness in proximal right lower extremity. - Neuro 4+/5 weakness in proximal right lower extremity. - OTHER Reviewed by Dr. Jean-Claude Mathew ASSESSMENT: [12/22/2021 18:43 (CDT), by Dr. Jean-Claude Mathew]On 12/10/2021 he was admitted to [facility] and underwent emergency surgery for Z89.51 Acquired absence of right leg below knee (Amputation of Limb(Unilateral Lower Limb Below the Knee (BK))) by Edie Stuart.On 12/10/2021 he was admitted to [facility] and unde [facility] emergency surgery for Z89.51 Acquired absence of right leg below knee (Amputation of Limb(Unil ateral Lower Limb Below the Knee (BK))) by Edie Stuart.Pt. is a 56 yo AAM.Pre-morbidly, Pt. was independent/mod-I in Locomotion and Self-Care; and he had good Safety Awareness, Balance, Transfers Control, and Endurance.Currently, he has deficits of Locomotion, Balance, and Self-Care.Pt. is now re ferred to [facility] for acute in-patient rehabilitation in order to maximize patient's functional independence in activities of daily living, strength, ROM, and mobility.- Rehab Goal Patient has realistic goal of being discharged at assistance level 6-Jacobo to reside at Home with Fam linda/Relatives. MDM/PLAN: - Physical Therapy Need for home safety evaluation - to improve, our physical therapists will perform initial evaluatio n of pt's status upon admission and devise an individualized program for Home Evaluation Need in caregiver upon discharge - to improve, our physical therapists will perform initial evaluati on of pt's status upon admission and devise an individualized program for Caregiver Training New precaution - to improve, our physical therapists will perform initial evaluation of pt's status upon admission and devise an individualized program for Patient precaution education Poor balance - to improve, our physical therapists will perform initial evaluation of pt's status up on admission and devise an individualized program for Balance Training Poor endurance - to improve, our physical therapists will perform initial evaluation of pt's status upon admission and devise an individualized program for Endurance Training Achieving independence - to improve, our physical therapists will perform initial evaluation of pt's status upon admission and devise an individualized program for Community Reintegration Activities - Occupational Therapy ADL deficits - to improve, our occupation therapists will perform initial evaluation of pt's status upon admission and devise an individualized program for Bathing, Bed mobility, Community Reintegratio n, Cooking, Dressing, Eating, Fine Motor Skills, Grooming, Homemaking, Kitchen Mobility, Laundry, Pat ient Education, Safety Awareness, Splinting - Positioning, Transfers(Toilet, Tub, Shower), and Wheel Chair Management Need for health care recruiter - to improve, our occupation therapists will perform initial evaluation of pt's status upon admission and devise an individualized program for Caregiver Training - Other See attached MAR (Medication Administration Record) - Diet Type Continue Regular - Diet - Liquid Texture Continue Regular - Tube Feed Continue N/A - Lab Results blood Sugar Check ACHS - Weight Bearing Precaution NWB right LE - Consult Perform Consult Certified Prosthetic for prosthesis construction - Skin care per protocol - N/A Perform Consult Certified Prosthetic for prosthesis construction - Diet - Solid Texture Continue Regular - Shower allowing shower FUNCTIONAL STATUS: UPDATED AT WEEKLY TEAM CONFERENCE - Bladder Same accident frequency: 7-Ind - No accidents in the past 7 days - Bowel Same accident frequency: 7-Ind - No accidents in the past 7 days - Walking Same score based on distance walked: 0(N/A) - Wheelchair Same score based on distance traveled: 0(N/A) FUNCTIONAL STATUS: - Self-Care A. Eating Ind B. Grooming Ind C. Bathing Jeanie D. Dressing - Upper Jeanie E. Dressing - Lower modA F. Toileting sup - Sphincter Control G. Bladder control Ind H. Bowel control Ind - Transfers Control I. Bed/Chair/Wheelchair Jeanie J. Toilet Jeanie K. Tub/Shower modA - Locomotion L. Walk/Wheelchair (B) Jeanie M. Stairs maxA - Communication N. Comprehension (B) Ind O. Expression (B) Ind - Social Cognition P. Social Interaction Ind Q. Problem Solving Ind R. Memory Ind - Endurance Good - Balance Good - Safety Awareness Good QI SCORES: - Self-Care A. Eating 06-Independent B. Oral hygiene 06-Independent C. Toileting hygiene 06-Independent E. Shower/bathe self 03-Partial/moderate assistance F. Upper body dressing 06-Independent G. Lower body dressing 06-Independent H. Putting on/taking off footwear 06-Independent - Mobility A. Roll left and right 06-Independent B. Sit to lying 06-Independent C. Lying to sitting on side of bed 06-Independent D. Sit to stand 04-Supervision or touching assistance E. Chair/[id number] transfer 04-Supervision or touching assistance F. Toilet transfer 04-Supervision or touching assistance G. Car transfer 88-Not attempted due to medical condition or safety concerns I. Walk 10 feet 03-Partial/moderate assistance J. Walk 50 feet with two turns 03-Partial/moderate assistance K. Walk 150 feet 88-Not attempted due to medical condition or safety concerns L. Walking 10 feet on uneven surfaces 88-Not attempted due to medical condition or safety concerns M. 1 step (curb) 88-Not attempted due to medical condition or safety concerns N. 4 steps 88-Not attempted due to medical condition or safety concerns O. 12 steps 88-Not attempted due to medical condition or safety concerns P. Picking up object 88-Not attempted due to medical condition or safety concerns R. Wheel 50 feet with two turns 09-Not applicable S. Wheel 150 feet 09-Not applicable - Bladder and Bowel Bladder continence 0-Always continent Bowel continence 0-Always continent CURRENT FUNC. DEFICITS: Self-Care and Mobility SIGNATURE PANEL: (CDT)
[2021-12-28] MEDS: INSULIN -REGULAR HUMAN 50 UNIT/0.5 ML ML SQ SCH ×2 (07:09→20:00)
[2021-12-28] MEDS: METFORMIN HCL 500 MG TAB PO SCH (07:56)
[2021-12-28] MEDS: FERROUS SULFATE 325 MG TAB PO SCH (07:56)
[2021-12-28] MEDS: APIXABAN 2.5 MG TABLET PO SCH ×2 (07:56→20:27)
--- NOTE | 2021-12-28 18:48 | R.PN ---
PROGRESS NOTES ENCOUNTER DATE AND TIME: 12/28/2021 18:42 (CDT) NAME ROMA MARTINEZ DATE OF : 1965 DATE OF ADMISSION: 12/21/2021 20:32 (CDT) Z89.51 Acquired absence of right leg below kneeCHIEF COMPLAINT: Right BKA, debility SUBJECTIVE: Pt denied any Shortness of Breath. Pt denied any depression. WBC 6.5, Hgb 9.2, glucose 96 to 125, UA is normal. Covid-19 test is negative. Ambulated 540' with modified independence using a rolling walker. Self-propelled wheelchair 750' with modified independence. VITAL SIGNS Temperature: 97.4 F SBP/DBP: 106/58 Pulse: 79 Resp: 16 MEDICATION ALLERGIES: No Known Drug Allergies (NKDA) ENVIRONMENTAL ALLERGIES: - Substance Allergies None Known - Other Allergies None Known CONSULT: Perform Consult Certified Prosthetic for prosthesis construction NURSING: - Shower allowing shower - Lab Results blood Sugar Check ACHS - Skin care per protocol PRECAUTIONS: - Weight Bearing Precaution NWB right LE ACTIVITIES OOB only with supervision THERAPIES: - Orthotics/Prosthetics Evaluate and Treat. Prosthetic Evaluation. - Dietary and Nutrition Adequate Nutrition. Nutritional Education. Nutritional Supplements. - Occupational Therapy Cognitive Retraining. Patient needs Occupational Therapy for a daily minimum of 1.5 hours at least 5 out of 7 days, to improve Activities of Daily Living, including: Eating, Grooming, Bathing, Dressing, Toileting, Toilet Transfers, Community Reintegration, Higher functional activities, Adaptive Equipme nt, Splinting, Household Tasks, and Other activities as determined. Visual Perceptual Training. - Physical Therapy Patient needs Physical Therapy for a daily minimum of 1.5 hours at least 5 out of 7 days, to improve: Mobility, Strengthening, Transfers, Stretching, ROM, Endurance, Ability to manage stairs, Gait, and Balance. PHYSICAL EXAM - Gen Alert and awake Lying in bed No apparent distress Oriented to: person, time, and place - Skin No skin breakdown. Normacephalic - Eyes No abnormalities - ENMT No abnormalities - Neck No abnormalities - CVS RRR - Chest No abnormalities - Abd + bowel sounds - GI obese abdomen Deferred - No abnormalities - Ext Right BKA stump with good hemostasis. - MSK 4+/5 weakness in proximal right lower extremity. - Neuro 4+/5 weakness in proximal right lower extremity. - OTHER Reviewed by Dr. Jean-Claude Mathew ASSESSMENT: [12/22/2021 18:43 (CDT), by Dr. Jean-Claude Mathew]On 12/10/2021 he was admitted to [facility] and underwent emergency surgery for Z89.51 Acquired absence of right leg below knee (Amputation of Limb(Unilateral Lower Limb Below the Knee (BK))) by Edie Stuart.On 12/10/2021 he was admitted to [facility] Z89.51 Acquired absence of right leg below knee (Amputation of Limb(Unil ateral Lower Limb Below the Knee (BK))) by Edie Stuart.Pt. is a 56 yo AAM.Pre-morbidly, Pt. was independent/mod-I in Locomotion and Self-Care; and he had good Safety Awareness, Balance, Transfers Control, and Endurance.Currently, he has deficits of Locomotion, Balance, and Self-Care.Pt. is now re ferred to [facility] for acute in-patient rehabilitation in order to maximize patient's functional independence in activities of daily living, strength, ROM, and mobility.- Rehab Goal Patient has realistic goal of being discharged at assistance level 6-Jacobo to reside at Home with Fam linda/Relatives. MDM/PLAN: - Physical Therapy Need for home safety evaluation - to improve, our physical therapists will perform initial evaluatio n of pt's status upon admission and devise an individualized program for Home Evaluation Need in caregiver upon discharge - to improve, our physical therapists will perform initial evaluati on of pt's status upon admission and devise an individualized program for Caregiver Training New precaution - to improve, our physical therapists will perform initial evaluation of pt's status upon admission and devise an individualized program for Patient precaution education Poor balance - to improve, our physical therapists will perform initial evaluation of pt's status up on admission and devise an individualized program for Balance Training Poor endurance - to improve, our physical therapists will perform initial evaluation of pt's status upon admission and devise an individualized program for Endurance Training Achieving independence - to improve, our physical therapists will perform initial evaluation of pt's status upon admission and devise an individualized program for Community Reintegration Activities - Occupational Therapy ADL deficits - to improve, our occupation therapists will perform initial evaluation of pt's status upon admission and devise an individualized program for Bathing, Bed mobility, Community Reintegratio n, Cooking, Dressing, Eating, Fine Motor Skills, Grooming, Homemaking, Kitchen Mobility, Laundry, Pat ient Education, Safety Awareness, Splinting - Positioning, Transfers(Toilet, Tub, Shower), and Wheel Chair Management Need for rn managed care - to improve, our occupation therapists will perform initial evaluation of pt's status upon admission and devise an individualized program for Caregiver Training - Other See attached MAR (Medication Administration Record) - Diet Type Continue Regular - Diet - Liquid Texture Continue Regular - Tube Feed Continue N/A - Lab Results blood Sugar Check ACHS - Weight Bearing Precaution NWB right LE - Consult Perform Consult Certified Prosthetic for prosthesis construction - Skin care per protocol - N/A Perform Consult Certified Prosthetic for prosthesis construction - Diet - Solid Texture Continue Regular - Shower allowing shower FUNCTIONAL STATUS: UPDATED AT WEEKLY TEAM CONFERENCE - Bladder Same accident frequency: 7-Ind - No accidents in the past 7 days - Bowel Same accident frequency: 7-Ind - No accidents in the past 7 days - Walking Same score based on distance walked: 0(N/A) - Wheelchair Same score based on distance traveled: 0(N/A) FUNCTIONAL STATUS: - Self-Care A. Eating Ind B. Grooming Ind C. Bathing Jeanie D. Dressing - Upper Jeanie E. Dressing - Lower modA F. Toileting sup - Sphincter Control G. Bladder control Ind H. Bowel control Ind - Transfers Control I. Bed/Chair/Wheelchair Jeanie J. Toilet Jeanie K. Tub/Shower modA - Locomotion L. Walk/Wheelchair (B) Jeanie M. Stairs maxA - Communication N. Comprehension (B) Ind O. Expression (B) Ind - Social Cognition P. Social Interaction Ind Q. Problem Solving Ind R. Memory Ind - Endurance Good - Balance Good - Safety Awareness Good QI SCORES: - Self-Care A. Eating 06-Independent B. Oral hygiene 06-Independent C. Toileting hygiene 06-Independent E. Shower/bathe self 03-Partial/moderate assistance F. Upper body dressing 06-Independent G. Lower body dressing 06-Independent H. Putting on/taking off footwear 06-Independent - Mobility A. Roll left and right 06-Independent B. Sit to lying 06-Independent C. Lying to sitting on side of bed 06-Independent D. Sit to stand 04-Supervision or touching assistance E. Chair/[id number] transfer 04-Supervision or touching assistance F. Toilet transfer 04-Supervision or touching assistance G. Car transfer 88-Not attempted due to medical condition or safety concerns I. Walk 10 feet 03-Partial/moderate assistance J. Walk 50 feet with two turns 03-Partial/moderate assistance K. Walk 150 feet 88-Not attempted due to medical condition or safety concerns L. Walking 10 feet on uneven surfaces 88-Not attempted due to medical condition or safety concerns M. 1 step (curb) 88-Not attempted due to medical condition or safety concerns N. 4 steps 88-Not attempted due to medical condition or safety concerns O. 12 steps 88-Not attempted due to medical condition or safety concerns P. Picking up object 88-Not attempted due to medical condition or safety concerns R. Wheel 50 feet with two turns 09-Not applicable S. Wheel 150 feet 09-Not applicable - Bladder and Bowel Bladder continence 0-Always continent Bowel continence 0-Always continent CURRENT FUNC. DEFICITS: Self-Care and Mobility SIGNATURE PANEL: (CDT)
[2021-12-29 04:37] LABS: Absolute Lymphocytes (CBC) 1.9 K/uL (0.7-4.9); Hematocrit 27.5 % (39.6-49.0); Lymphocytes % 25.6 % (15.3-44.8); MCV 83.6 fL (80-100); MPV 7.6 fL (7.6-11.3); RBC Red Blood Cell Count 3.29 M/uL (4.33-5.43)
[2021-12-29 04:58] LABS: Albumin 2.7 g/dL (3.4-5.0); Magnesium 2.1 mg/dL (1.8-2.4); Potassium 3.8 mmol/L (3.5-5.1); Prealbumin 24.6 mg/dL (20-40)
[2021-12-29] MEDS: INSULIN -REGULAR HUMAN 50 UNIT/0.5 ML ML SQ SCH ×2 (08:00→20:00)
[2021-12-29] MEDS: METFORMIN HCL 500 MG TAB PO SCH (08:05)
[2021-12-29] MEDS: APIXABAN 2.5 MG TABLET PO SCH ×2 (08:05→21:01)
[2021-12-29] MEDS: FERROUS SULFATE 325 MG TAB PO SCH (08:05)
--- NOTE | 2021-12-29 19:13 | R.PN ---
PROGRESS NOTES ENCOUNTER DATE AND TIME: 12/29/2021 19:09 (CDT) NAME ROMA MARTINEZ DATE OF : 1965 DATE OF ADMISSION: 12/21/2021 20:32 (CDT) Z89.51 Acquired absence of right leg below kneeCHIEF COMPLAINT: Right BKA, debility SUBJECTIVE: Pt denied any Shortness of Breath. Pt denied any depression. WBC 7.4, Hgb 9.2, glucose 115 to 121, UA is normal. Covid-19 test is negative. Ambulated 640' with modified independence using a rolling walker. Self-propelled wheelchair 250' with modified independence. VITAL SIGNS Temperature: 97.7 F SBP/DBP: 119/69 Pulse: 88 Resp: 16 MEDICATION ALLERGIES: No Known Drug Allergies (NKDA) ENVIRONMENTAL ALLERGIES: - Substance Allergies None Known - Other Allergies None Known CONSULT: Perform Consult Certified Prosthetic for prosthesis construction NURSING: - Shower allowing shower - Lab Results blood Sugar Check ACHS - Skin care per protocol PRECAUTIONS: - Weight Bearing Precaution NWB right LE ACTIVITIES OOB only with supervision THERAPIES: - Orthotics/Prosthetics Evaluate and Treat. Prosthetic Evaluation. - Dietary and Nutrition Adequate Nutrition. Nutritional Education. Nutritional Supplements. - Occupational Therapy Cognitive Retraining. Patient needs Occupational Therapy for a daily minimum of 1.5 hours at least 5 out of 7 days, to improve Activities of Daily Living, including: Eating, Grooming, Bathing, Dressing, Toileting, Toilet Transfers, Community Reintegration, Higher functional activities, Adaptive Equipme nt, Splinting, Household Tasks, and Other activities as determined. Visual Perceptual Training. - Physical Therapy Patient needs Physical Therapy for a daily minimum of 1.5 hours at least 5 out of 7 days, to improve: Mobility, Strengthening, Transfers, Stretching, ROM, Endurance, Ability to manage stairs, Gait, and Balance. PHYSICAL EXAM - Gen Alert and awake Lying in bed No apparent distress Oriented to: person, time, and place - Skin No skin breakdown. Normacephalic - Eyes No abnormalities - ENMT No abnormalities - Neck No abnormalities - CVS RRR - Chest No abnormalities - Abd + bowel sounds - GI obese abdomen Deferred - No abnormalities - Ext Right BKA stump with good hemostasis. - MSK 4+/5 weakness in proximal right lower extremity. - Neuro 4+/5 weakness in proximal right lower extremity. - OTHER Reviewed by Dr. Jean-Claude Mathew ASSESSMENT: [12/22/2021 18:43 (CDT), by Dr. Jean-Claude Mathew]On 12/10/2021 he was admitted to [facility] and underwent emergency surgery for Z89.51 Acquired absence of right leg below knee (Amputation of Limb(Unilateral Lower Limb Below the Knee (BK))) by Edie Stuart.On 12/10/2021 he was admitted to [facility] and unde [facility] emergency surgery for Z89.51 Acquired absence of right leg below knee (Amputation of Limb(Unil ateral Lower Limb Below the Knee (BK))) by Edie Stuart.Pt. is a 56 yo AAM.Pre-morbidly, Pt. was independent/mod-I in Locomotion and Self-Care; and he had good Safety Awareness, Balance, Transfers Control, and Endurance.Currently, he has deficits of Locomotion, Balance, and Self-Care.Pt. is now re ferred to [facility] for acute in-patient rehabilitation in order to maximize patient's functional independence in activities of daily living, strength, ROM, and mobility.- Rehab Goal Patient has realistic goal of being discharged at assistance level 6-Jacobo to reside at Home with Fam linda/Relatives. MDM/PLAN: - Physical Therapy Need for home safety evaluation - to improve, our physical therapists will perform initial evaluatio n of pt's status upon admission and devise an individualized program for Home Evaluation Need in caregiver upon discharge - to improve, our physical therapists will perform initial evaluati on of pt's status upon admission and devise an individualized program for Caregiver Training New precaution - to improve, our physical therapists will perform initial evaluation of pt's status upon admission and devise an individualized program for Patient precaution education Poor balance - to improve, our physical therapists will perform initial evaluation of pt's status up on admission and devise an individualized program for Balance Training Poor endurance - to improve, our physical therapists will perform initial evaluation of pt's status upon admission and devise an individualized program for Endurance Training Achieving independence - to improve, our physical therapists will perform initial evaluation of pt's status upon admission and devise an individualized program for Community Reintegration Activities - Occupational Therapy ADL deficits - to improve, our occupation therapists will perform initial evaluation of pt's status upon admission and devise an individualized program for Bathing, Bed mobility, Community Reintegratio n, Cooking, Dressing, Eating, Fine Motor Skills, Grooming, Homemaking, Kitchen Mobility, Laundry, Pat ient Education, Safety Awareness, Splinting - Positioning, Transfers(Toilet, Tub, Shower), and Wheel Chair Management Need for clinical manager home care - to improve, our occupation therapists will perform initial evaluation of pt's status upon admission and devise an individualized program for Caregiver Training - Other See attached MAR (Medication Administration Record) - Diet Type Continue Regular - Diet - Liquid Texture Continue Regular - Tube Feed Continue N/A - Lab Results blood Sugar Check ACHS - Weight Bearing Precaution NWB right LE - Consult Perform Consult Certified Prosthetic for prosthesis construction - Skin care per protocol - N/A Perform Consult Certified Prosthetic for prosthesis construction - Diet - Solid Texture Continue Regular - Shower allowing shower FUNCTIONAL STATUS: UPDATED AT WEEKLY TEAM CONFERENCE - Bladder Same accident frequency: 7-Ind - No accidents in the past 7 days - Bowel Same accident frequency: 7-Ind - No accidents in the past 7 days - Walking Same score based on distance walked: 0(N/A) - Wheelchair Same score based on distance traveled: 0(N/A) FUNCTIONAL STATUS: - Self-Care A. Eating Ind B. Grooming Ind C. Bathing Jeanie D. Dressing - Upper Jeanie E. Dressing - Lower modA F. Toileting sup - Sphincter Control G. Bladder control Ind H. Bowel control Ind - Transfers Control I. Bed/Chair/Wheelchair Jeanie J. Toilet Jeanie K. Tub/Shower modA - Locomotion L. Walk/Wheelchair (B) Jeanie M. Stairs maxA - Communication N. Comprehension (B) Ind O. Expression (B) Ind - Social Cognition P. Social Interaction Ind Q. Problem Solving Ind R. Memory Ind - Endurance Good - Balance Good - Safety Awareness Good QI SCORES: - Self-Care A. Eating 06-Independent B. Oral hygiene 06-Independent C. Toileting hygiene 06-Independent E. Shower/bathe self 03-Partial/moderate assistance F. Upper body dressing 06-Independent G. Lower body dressing 06-Independent H. Putting on/taking off footwear 06-Independent - Mobility A. Roll left and right 06-Independent B. Sit to lying 06-Independent C. Lying to sitting on side of bed 06-Independent D. Sit to stand 04-Supervision or touching assistance E. Chair/ims-bn-hhsyu transfer 04-Supervision or touching assistance F. Toilet transfer 04-Supervision or touching assistance G. Car transfer 88-Not attempted due to medical condition or safety concerns I. Walk 10 feet 03-Partial/moderate assistance J. Walk 50 feet with two turns 03-Partial/moderate assistance K. Walk 150 feet 88-Not attempted due to medical condition or safety concerns L. Walking 10 feet on uneven surfaces 88-Not attempted due to medical condition or safety concerns M. 1 step (curb) 88-Not attempted due to medical condition or safety concerns N. 4 steps 88-Not attempted due to medical condition or safety concerns O. 12 steps 88-Not attempted due to medical condition or safety concerns P. Picking up object 88-Not attempted due to medical condition or safety concerns R. Wheel 50 feet with two turns 09-Not applicable S. Wheel 150 feet 09-Not applicable - Bladder and Bowel Bladder continence 0-Always continent Bowel continence 0-Always continent CURRENT FUNC. DEFICITS: Self-Care and Mobility SIGNATURE PANEL: (CDT)
[2021-12-30] MEDS: INSULIN -REGULAR HUMAN 50 UNIT/0.5 ML ML SQ SCH ×2 (07:18→20:00)
[2021-12-30] MEDS: APIXABAN 2.5 MG TABLET PO SCH ×2 (07:27→20:06)
[2021-12-30] MEDS: FERROUS SULFATE 325 MG TAB PO SCH (07:27)
[2021-12-30] MEDS: METFORMIN HCL 500 MG TAB PO SCH (07:27)
[2021-12-30 08:01] LABS: Absolute Lymphocytes (CBC) 1.3 K/uL (0.7-4.9); Hematocrit 29.1 % (39.6-49.0); Lymphocytes % 9.3 % (15.3-44.8); MCV 83.4 fL (80-100); MPV 7.5 fL (7.6-11.3); RBC Red Blood Cell Count 3.49 M/uL (4.33-5.43)
[2021-12-30 08:32] LABS: Potassium 3.7 mmol/L (3.5-5.1)
--- NOTE | 2021-12-30 09:33 | P.RH.PN ---
Vital Signs: Last Vital Signs Temp 99.4 F 12/30/21 07:25 Pulse 104 H 12/30/21 07:25 Resp 18 12/30/21 07:25 BP 124/76 12/30/21 07:25 Pulse Ox 95 12/30/21 07:25 Laboratory: Laboratory Last Values WBC 14.30 K/uL (4.3-10.9) H 12/30/21 07:47 RBC 3.49 M/uL (4.33-5.43) L 12/30/21 07:47 Hgb 9.4 g/dL (13.6-17.9) L 12/30/21 07:47 Hct 29.1 % (39.6-49.0) L 12/30/21 07:47 MCV 83.4 fL (80-100) 12/30/21 07:47 MCH 26.9 pg (27.0-35.0) L 12/30/21 07:47 MCHC 32.2 g/dL (32.0-36.0) 12/30/21 07:47 RDW 14.6 % (12.1-15.2) 12/30/21 07:47 Plt Count 296 K/uL (152-406) 12/30/21 07:47 MPV 7.5 fL (7.6-11.3) L 12/30/21 07:47 Neutrophils % 84.6 % (41.7-73.7) H 12/30/21 07:47 Lymphocytes % 9.3 % (15.3-44.8) L 12/30/21 07:47 Monocytes % 5.1 % (3.3-12.3) 12/30/21 07:47 Eosinophils % 0.1 % (0-4.4) 12/30/21 07:47 Basophils % 0.9 % (0-1.3) 12/30/21 07:47 Absolute Neutrophils 12.1 K/uL (1.8-8.0) H 12/30/21 07:47 Absolute Lymphocytes 1.3 K/uL (0.7-4.9) 12/30/21 07:47 Absolute Monocytes 0.7 K/uL (0.1-1.3) 12/30/21 07:47 Absolute Eosinophils 0.0 K/uL (0-0.5) 12/30/21 07:47 Absolute Basophils 0.1 K/uL (0-0.5) 12/30/21 07:47 Sodium 135 mmol/L (136-145) L D 12/30/21 07:47 Potassium 3.7 mmol/L (3.5-5.1) 12/30/21 07:47 Chloride 102 mmol/L (98-107) 12/30/21 07:47 Carbon Dioxide 28 mmol/L (21-32) 12/30/21 07:47 Anion Gap 8.7 mEq/L (5.0-15.0) 12/30/21 07:47 BUN 9 mg/dL (7-18) 12/30/21 07:47 Creatinine 1.10 mg/dL (0.55-1.3) 12/30/21 07:47 Est GFR (CKD-EPI) 79 ml/min (=/>90) L 12/30/21 07:47 Glucose 136 mg/dL (74-106) H 12/30/21 07:47 POC Glucose 132 mg/dL (65-120) H 12/30/21 06:53 Calcium 8.8 mg/dL (8.5-10.1) 12/30/21 07:47 Magnesium 2.1 mg/dL (1.8-2.4) 12/29/21 03:59 Albumin 2.7 g/dL (3.4-5.0) L 12/29/21 03:59 Prealbumin 24.6 mg/dL (20-40) 12/29/21 03:59 Urine Color Light-yellow (Yellow) 12/21/21 22:00 Urine Clarity Clear (Clear) 12/21/21 22:00 Urine pH 5.0 (5.0-7.0) 12/21/21 22:00 Ur Specific [place] 1.014 (1.005-1.030) 12/21/21 22:00 Glucose (UA)(Auto) Negative (Negative) 12/21/21 22:00 Urine Ketones Negative (Negative) 12/21/21 22:00 Urine Blood Negative (Negative) 12/21/21 22:00 Urine Nitrite Negative (Negative) 12/21/21 22:00 Urine Bilirubin Negative (Negative) 12/21/21 22:00 Urine Urobilinogen Normal (Normal) 12/21/21 22:00 Ur Leukocyte Esterase Negative Erika/uL (Negative) 12/21/21 22:00 Urine RBC <5 /HPF (None Seen) 12/21/21 22:00 Urine WBC <5 /HPF (<5) 12/21/21 22:00 Ur Squamous Epith Cells <5 /HPF (None Seen) 12/21/21 22:00 U Non-Squamous Epi Cells <5 /HPF (None Seen) 12/21/21 22:00 Urine Mucus Slight /HPF (None Seen) 12/21/21 22:00 Urine Total Protein Negative (Negative) 12/21/21 22:00 SARS-CoV-2 Rap RNA(RT-PCR) Negative (NEGATIVE) 12/28/21 04:00 Weight: 247 lb 11.2 oz Wound Present: No Closed Surgical Incision Present: Yes Negative Pressure Wound Therapy Present: No Physician Update: He is at mod-I with most of his physical therapy and occupational therapy. He as a low grade fever and elevated WBC. Procalcitonin and lactic acid with chest UA. Will hold discharge today. Functional Improvement: Patient continues to progress toward reaching long-term goals. Patient presents w/ great attitude and work ethic. 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 Please see the Rehabilitation Signature page for all necessary signatures.
[2021-12-30 10:51] LABS: Specific Gravity 1.014 (1.005-1.030); Urine Bacteria <20 /HPF (<20); Urine Bilirubin NEGATIVE (Negative); Urine Blood 1+ (Negative); Urine Clarity Turbid (Clear); Urine Color Light-Yellow (Yellow); Urine Crystals Unidentified Few /HPF (None Seen); Urine Glucose NEGATIVE (Negative); Urine Mucus Slight /HPF (None Seen); Urine Protein 1+ (Negative); Urine RBC 21-50 /HPF (None Seen); Urine Urobilinogen Normal (Normal); Urine WBC Clump Occasional /HPF (None Seen); Urine pH 5.5 (5.0-7.0)
[2021-12-30] MEDS: CIPROFLOXACIN HCL 500 MG TAB PO SCH ×2 (12:10→20:06)
--- NOTE | 2021-12-30 13:23 | RAD REPORT ---
EXAM DESCRIPTION: RAD - Chest Single View - 12/30/2021 1:16 pm CLINICAL HISTORY: r/o pnuemonia COMPARISON: CHEST SINGLE VIEW dated 06/07/2013 FINDINGS: Lines: None. Lungs: No evidence of edema or pneumonia. Pleural: No significant pleural effusions or pneumothorax. Cardiac: The heart size is within normal limits. Mediastinum: Within normal limits. Bones: No acute fractures. Other: None IMPRESSION: No acute cardiopulmonary disease.
[2021-12-30] MEDS ORDERED: CIPROFLOXACIN HCL 500 MG TAB PO SCH (20:00)
[2021-12-31 05:23] LABS: Absolute Lymphocytes (CBC) 2.1 K/uL (0.7-4.9); Hematocrit 27.3 % (39.6-49.0); Lymphocytes % 14.2 % (15.3-44.8); MPV 7.7 fL (7.6-11.3); RBC Red Blood Cell Count 3.25 M/uL (4.33-5.43)
[2021-12-31] MEDS: INSULIN -REGULAR HUMAN 50 UNIT/0.5 ML ML SQ SCH (08:00)
[2021-12-31 08:02] VITALS: BP 119/75; TEMP 98.2
[2021-12-31] MEDS: FERROUS SULFATE 325 MG TAB PO SCH (08:38)
[2021-12-31] MEDS: APIXABAN 2.5 MG TABLET PO SCH (08:38)
[2021-12-31] MEDS: CIPROFLOXACIN HCL 500 MG TAB PO SCH (08:39)
[2021-12-31] MEDS: METFORMIN HCL 500 MG TAB PO SCH (08:40)
== END 2021-12-31 11:30 | disposition home or self-care (01) | DRG 560 ==
LOC: 5TH 12-21 21:06
PROVIDERS: ADMIT Psychiatry & Neurology Neurology with Special Qualifications in Child Neurology; ATTEND Psychiatry & Neurology Neurology with Special Qualifications in Child Neurology
DX: Z47.81 Encounter for orthopedic aftercare following surgical amputation (principal); L03.115 Cellulitis of right lower limb; E11.40 Type 2 diabetes mellitus with diabetic neuropathy, unspecified; R25.1 Tremor, unspecified; Z89.511 Acquired absence of right leg below knee; Z20.822 Contact with and (suspected) exposure to COVID-19
CPT/HCPCS: 36415; 71045; 80048; 81001; 82040; 82947; 83605; 83615; 83735; 84134; 84145; 85025; 87077; 87086; 87088; 87186; 97110; 97116; 97165; 97530; 97542; U0003